=== PATIENT | female | born 1940 ===

== ENCOUNTER 2022-01-07 13:14 | Inpatient (IN) | payer MEDICARE ==
[~2022-01-07] VITALS: Ht 170.2 cm; Wt 75.9 kg
[2022-01-07] MEDS ORDERED: HALOPERIDOL 5 MG/ML (HALDOL) VIAL IM PRN (13:45)
[2022-01-07] MEDS ORDERED: polyethylene glycoL POWDER 17 GM (MIRALAX) PACK PO PRN (13:45)
[2022-01-07] MEDS ORDERED: diphenhydrAMINE 50 MG/ML INJ (BENADRYL) IVP PRN (13:45)
[2022-01-07] MEDS ORDERED: HYDROmorphone 2 MG/ML VIAL (DILAUDID) IV PRN (13:45)
[2022-01-07] MEDS ORDERED: ANTACID SUSP 30 ML UDC (MYLANTA) PO PRN (13:45)
[2022-01-07] MEDS ORDERED: BISACODYL 10 MG SUPP (DULCOLAX) PR PRN (13:45)
[2022-01-07] MEDS ORDERED: ACETAMINOPHEN 325 MG TABLET PO PRN (13:45)
[2022-01-07] MEDS ORDERED: ONDANSETRON 4 MG/2 ML (SDV) Z0FRAN IV PRN (13:45)
[2022-01-07] MEDS ORDERED: diphenhydrAMINE 25 MG TAB (BENADRYL) PO PRN (13:45)
[2022-01-07] MEDS ORDERED: CALCIUM CARBONATE 500 MG (TUMS) TAB.CHEW PO PRN (13:45)
[2022-01-07] MEDS ORDERED: ONDANSETRON 4 MG (ZOFRAN) ORAL DISSOLVE TAB PO PRN (13:45)
[2022-01-07] MEDS ORDERED: LACTULOSE SYRUP 10GM/15ML (ENULOSE) 30ML UDC PO PRN (13:45)
[2022-01-07] MEDS ORDERED: MILK OF MAGNESIA 400 MG/5 ML 30 ML UDC PO PRN (13:45)
[2022-01-07] MEDS ORDERED: MELATONIN 3 MG TABLET PO PRN (13:45)
--- OUTSIDE RECORDS SUMMARY | 2022-01-07 14:07 | XMS REPORT | Referral Summary ---
Author Author [facility] Organization [facility] Address Unknown Phone Unavailable Care Team Providers Care Screw Machine Set Up Operator Name Role Phone MusaCassandra PCP Encounter 01/03/22 - 01/03/22 [facility] [address] [facility] [address] [place], [place] [phone] Discharge Disposition: 01-Home or Self Care Allergies, Adverse Reactions, Alerts Substance Reaction Severity Status sulindac pt thinks caused rash/burning Medium Active Tape Redness of the skin Mild Active iodine rash Medium Active Assessment and Plan No data available for this section Functional Status No data available for this section Immunizations Given and Recorded Vaccine Date Status Refusal Reason SARS-CoV-2 (COVID-19) mRNA BNT-162b2 vac 12/28/20 Recorded influenza virus vaccine, inactivated 12/03/20 R ecorded influenza virus vaccine, inactivated 10/11/19 R ecorded influenza virus vaccine, inactivated 11/19/18 R ecorded influenza virus vaccine, inactivated 11/13/17 R ecorded influenza virus vaccine, inactivated 11/04/16 R ecorded influenza virus vaccine, inactivated 12/15/15 R ecorded influenza virus vaccine, inactivated1 11/28/14 Recorded influenza virus vaccine, inactivated2 11/20/13 Recorded SARS-CoV-2 (COVID-19) Ad26 vax, recomb 06/24/20 Recorded tetanus/diphth/pertuss (Tdap) adult/adol 04/16/19 Given Shingrix 11/20/18 Recorded Shingrix 09/19/18 Recorded pneumococcal 23-polyvalent vaccine 01/03/17 Giv en pneumococcal 23-polyvalent vaccine 09/02/05 Rec orded measles/mumps/rubella/varicella vaccine 11/04/16 Recorded pneumococcal 13-valent conjugate vaccine 01/20/15 Given influenza virus vaccine, live 11/29/12 Given influenza virus vaccine, live 11/30/11 Given influenza virus vaccine, H1N1, inactivat 02/24/09 Recorded tetanus-diphth toxoids (Td) adult/adol 06/17/03 Given 1Location History: [facility] 2Location History: [facility] pharmacy Medications alendronate 70 mg oral tablet See Instructions, TAKE ONE TABLET BY MOUTH ONCE WEEKLY, # 12 tabs, 0 Refill(s), Pharmacy: [facility] [id number], TAKE ONE TABLET BY MOUTH ONCE WEEKLY Start Date: 12/18/20 Status: Ordered Aleve 220 mg oral tablet 220 mg 1 tabs, Oral, BID Start Date: 11/24/20 Status: Ordered atorvastatin 80 mg oral tablet 80 mg 1 tabs, Oral, Bedtime (once a day), # 90 tabs, 0 Refill(s), Pharmacy: [facility] #[id number], 1 tabs Oral Bedtime (once a day) Start Date: 12/31/20 Status: Ordered calcium (as carbonate and lactate)-vitamin D 200 mg-250 intl units (6.25 mcg) or al tablet, chewable 1 tabs, Chewed, Daily, 0 Refill(s) Start Date: 05/06/20 Status: Ordered Eliquis 5 mg oral tablet 5 mg 1 tabs, Oral, BID, # 60 tabs, 0 Refill(s) Start Date: 06/23/20 Status: Ordered flecainide 50 mg oral tablet 50 mg 1 tabs, Oral, q12hr, # 60 tabs, 6 Refill(s), Pharmacy: [facility] #[id number], 1 tabs Oral q12hr Start Date: 04/22/17 Status: Ordered levothyroxine 75 mcg (0.075 mg) oral tablet See Instructions, TAKE ONE TABLET BY MOUTH DAILY, # 90 tabs, 0 Refill(s), Pharma cy: [facility] [id number], TAKE ONE TABLET BY MOUTH DAILY Start Date: 10/07/21 Status: Ordered Mental Status No data available for this section Problem List Condition Confirmation Course Effective Status Health Status Informant Dates Acute pain Confirmed Active Anemia Confirmed Active Cataracts Confirmed Active Centrilobular Confirmed 2008 Active emphysema Generalized Confirmed Active osteoarthritis (disorder) 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 Urine Confirmed Active Infections Disease caused Confirmed Active by 2018-nCoV1 Mixed Confirmed Active dyslipidemia Pedal edema Confirmed < 01/14/14 Resolved Lower extremity Confirmed Active edema Fibrocystic Confirmed 12/20/07 Active mastopathy 2-part disp Confirmed Resolved fracture of surgical neck of humerus with routine healing GERD Confirmed Active (gastroesophage al reflux disease) Hypothyroidism Confirmed Active (disorder) Prediabetes Confirmed Active Kidney stones Confirmed 198901/14/14 Resolved Elevated liver Confirmed Active enzymes Dermatophytosis Confirmed Active of nail Osteopenia Confirmed Resolved Osteoporosis Confirmed Active (disorder) Overweight Confirmed Active PAF (paroxysmal Confirmed Active atrial fibrillation) Chicken pox2 Confirmed < 01/14/14 Resolved 1Problem added by [email or web address]_PROBLEM due to COVID POS on March 18, 2020 16:49:30 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 Procedures Procedure Date Related Diagnosis Body Site Status Cystoscopy Ureteroscopy1 11/25/20 Completed Cataract Left 2008 Completed Cataract right 2008 Completed L BREAST BX 12/20/07 Completed Breast Punch biopsies X2 Completed Cataract extraction Completed 1auto-populated from documented surgical case Results No data available for this section Vital Signs No data available for this section Social History Social History Type Response Smoking Status Former smoker, quit more th an 30 days ago; Type: Cigarettes; Tobacco use per day: Less than 1/4 pack; Number of years: 25; entered on: 05/07/20 Sex Female Health Concerns No data available for this section Implantable Device List No data available for this section Hospital Discharge Instructions No data available for this section Goals No data available for this section Reason for Referral No data available for this section Hospital Course No data available for this section Clinical Note No data available for this section Patient Care team information Personnel Name: Cassandra Vigil MD Address: Address: [address] [address]
--- OUTSIDE RECORDS SUMMARY | 2022-01-07 14:07 | XMS REPORT | Referral Summary ---
Author Author [facility] Organization [facility] Address Unknown Phone Unavailable Care Team Providers Care Scientific Process Operator Name Role Phone Cassandra Vigil PCP Encounter 11/08/21 - 11/08/21 [facility] [address] [facility] [address] [place], [place] [address] Encounter Diagnosis Swelling of left lower extremity (Discharge Diagnosis) - 11/08/21 Discharge Disposition: 01-Home or Self Care Attending Physician: Cassandra Vigil MD Allergies, Adverse Reactions, Alerts Substance Reaction Severity Status sulindac pt thinks caused rash/burning Medium Active Tape Redness of the skin Mild Active iodine rash Medium Active Assessment and Plan Extracted from: Title: Office Visit Note Author: Cassandra Vigil MD Date : 11/08/21 Swelling of left lower extremi ty Schedulevenous Doppler to rule out DVT. Ordered: Office Visit Level 3 Est 98566 Functional Status No data available for this [...] 06/17/03 Given 1[facility] 2Location History: [facility] pharmacy Medications alendronate 70 mg oral tablet See Instructions, TAKE ONE TABLET BY MOUTH ONCE WEEKLY, # 12 tabs, 0 Refill(s), Pharmacy: [facility] [id number], TAKE ONE TABLET BY MOUTH ONCE WEEKLY Start Date: 12/18/20 Status: Ordered Aleve 220 mg oral tablet 220 mg 1 tabs, Oral, BID Start Date: 11/24/20 Status: Ordered atorvastatin 80 mg oral tablet 80 mg 1 tabs, Oral, Bedtime (once a day), # 90 tabs, 0 Refill(s), Pharmacy: [facility] #[id number], 1 tabs Oral Bedtime (once a day) [...] q12hr, # 60 tabs, 6 Refill(s), Pharmacy: [facility] #[id number], 1 tabs Oral q12hr Start Date: 04/22/17 Status: Ordered levothyroxine 75 mcg (0.075 mg) oral tablet See Instructions, TAKE ONE TABLET BY MOUTH DAILY, # 90 tabs, 0 Refill(s), Pharma cy: [facility] [id number], TAKE ONE TABLET BY MOUTH DAILY Start Date: 10/07/21 Status: Ordered Mental Status No data available for this section Problem List Condition Confirmation Course Effective Status Health Status Informant Dates Acute pain Confirmed Active Anemia Confirmed Active Cataracts Confirmed Active Centrilobular Confirmed 2007 Active emphysema Generalized Confirmed Active osteoarthritis (disorder) [...] Confirmed < 01/14/14 Resolved 1Problem added by MALLY_COVID_PROBLEM due to COVID POS on March 18, 2020 16:49:30 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 Procedures Procedure Date Related Diagnosis Body Site Status Cystoscopy Ureteroscopy1 11/25/20 Completed Cataract Left 2008 Completed Cataract right 2008 Completed L BREAST BX 12/20/07 Completed Breast Punch biopsies X2 Completed Cataract extraction Completed 1auto-populated from documented surgical case Results No data available for this section Vital Signs Most recent to 1 oldest [Reference Range]: Temperature Tympanic 36.5 degC [35.8-38.1 degC] (11/08/21 1:40 PM) Peripheral Pulse 80 bpm Rate [60-100 bpm] (11/08/21 1:40 PM) Blood Pressure 146/80 mmHg [90-140/60-90 mmHg] *HI* (11/08/21 1:40 PM) SpO2 98 % (11/08/21 1:40 PM) Social History Social History Type Response Smoking [...] Personnel Name: Cassandra Vigil MD Address: Address: [address] [address]
--- OUTSIDE RECORDS SUMMARY | 2022-01-07 14:07 | XMS REPORT | Referral Summary ---
Author Author [facility] Organization [facility] Address Unknown Phone Unavailable Care Team Providers Care Photography Colorist Name Role Phone MusaCassandra PCP Encounter 12/30/21 - 12/30/21 [facility] [address] [facility] [address] [place], [place] [phone] Discharge Disposition: 01-Home or Self Care Allergies, [...] 06/17/03 Given 1[facility] History[facility] 2Location History: [facility] pharmacy Medications alendronate 70 mg oral tablet See Instructions, TAKE ONE TABLET BY MOUTH ONCE WEEKLY, # 12 tabs, 0 Refill(s), Pharmacy: [facility] [id number], TAKE ONE TABLET BY MOUTH ONCE WEEKLY Start Date: 12/18/20 Status: Ordered Aleve 220 mg oral tablet 220 mg 1 tabs, Oral, BID Start Date: 11/24/20 Status: Ordered atorvastatin 80 mg oral tablet 80 mg 1 tabs, Oral, Bedtime (once a day), # 90 tabs, 0 Refill(s), Pharmacy: [facility] #[id number], 1 tabs Oral Bedtime (once a day) [...] q12hr, # 60 tabs, 6 Refill(s), Pharmacy: [facility] #[id number], 1 tabs Oral q12hr Start Date: 04/22/17 Status: Ordered levothyroxine 75 mcg (0.075 mg) oral tablet See Instructions, TAKE ONE TABLET BY MOUTH DAILY, # 90 tabs, 0 Refill(s), Pharma cy: [facility] [id number], TAKE ONE TABLET BY MOUTH DAILY Start [...] COVID POS on March 18, 2020 16:49:30 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
--- OUTSIDE RECORDS SUMMARY | 2022-01-07 14:07 | XMS REPORT | Referral Summary ---
Author Author [facility] Organization [facility] Address Unknown Phone Unavailable Care Team Providers Care Hand Edge Bander Name Role Phone MusaCassandra PCP Encounter 12/28/21 - 12/28/21 [facility] [address] [facility] [address] [place], [place] [phone] Discharge Disposition: 01-Home or Self Care Allergies, [...] 06/17/03 Given 1[facility] History[facility] 2Location History: [facility] pharmacy Medications alendronate 70 mg oral tablet See Instructions, TAKE ONE TABLET BY MOUTH ONCE WEEKLY, # 12 tabs, 0 Refill(s), Pharmacy: [facility] [id number], TAKE ONE TABLET BY MOUTH ONCE WEEKLY Start Date: 12/18/20 Status: Ordered Aleve 220 mg oral tablet 220 mg 1 tabs, Oral, BID Start Date: 11/24/20 Status: Ordered atorvastatin 80 mg oral tablet 80 mg 1 tabs, Oral, Bedtime (once a day), # 90 tabs, 0 Refill(s), Pharmacy: [facility] #[id number], 1 tabs Oral Bedtime (once a day) [...] # 60 tabs, 6 Refill(s), Pharmacy: [facility] #[id number], 1 tabs Oral q12hr Start Date: 04/22/17 Status: Ordered levothyroxine 75 mcg (0.075 mg) oral tablet See Instructions, TAKE ONE TABLET BY MOUTH DAILY, # 90 tabs, 0 Refill(s), Pharma cy: [facility] [id number], TAKE ONE TABLET BY MOUTH DAILY Start [...] COVID POS on March 18, 2020 16:49:30 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
[2022-01-07 14:10] VITALS: BP 167/98
--- NOTE | 2022-01-07 14:39 | Physical Therapy Progress Note ---
Therapy Progress Note Per Nurse, patient is a resident of [facility] in [place], [place]. Patient sustained a fall from standing this morning. Patient has left clavicle fracture, left pubic rami fracture and left humeral dislocation. Patient is also confused at baseline and her niece is her DPOA. All information obtained from nurse as there were no reports yet in the patient EMR. Nurse requested hold at this time for PT evaluation due to patient injuries and current cognitive level. Will attempt evaluation tomorrow and progress per patient tolerance. CARMELLA GUIDRY PT Jan 07, 2022 14:39
[2022-01-07] MEDS ORDERED: APIX5TAB PO (14:49)
[2022-01-07] MEDS ORDERED: NAPR220C11 PO (14:49)
[2022-01-07] MEDS ORDERED: FLEC50TA PO (14:49)
[2022-01-07] MEDS ORDERED: LEVO75CA5 PO (14:49)
[2022-01-07] MEDS ORDERED: CALC-146 PO (14:49)
--- NOTE | 2022-01-07 14:52 | Occ Therapy Progress Note ---
Therapy Progress Note OT orders received. Pt just admitted from [facility] for pelvic fx. Pt on hold this date per RN. OT will attempt again next available time. LOAN WEISS OT Jan 07, 2022 14:52
[2022-01-07 15:07] VITALS: BP 167/98
[2022-01-07] MEDS ORDERED: RT-ALBUTEROL/IPRATROPIUM 3 ML (DUONEB) VIAL INH PRN (15:15)
[2022-01-07] MEDS: NS IV 1000 ML 1,000 ML IV SCH (15:20)
[2022-01-07] MEDS: ALPRAZolam 0.5 MG (XANAX) TAB PO PRN (15:28)
[2022-01-07] MEDS: morphine IMMEDIATE RELEASE 15 MG TABLET PO PRN (15:29)
[2022-01-07 15:35] VITALS: BP 152/72
--- NOTE | 2022-01-07 15:46 | History & Physical ---
History of Present Illness HPI/Chief Complaint CC: Fall with left clavicle and left pelvic ramus fracture HPI: This is an 81yoWF patient who just moved from [place] to [facility] in [place] and suffered a fall which resulted in left sided bone fractures. Her relative works at [employer] in OB floor so she requested the patient to move here to be closer to her. She is very confused and has dementia. Dr Larsen consulted for AF on OAC and Flecanide. Anti-psychotics are ordered due to agitation already noted. Source: family, RN/MD, old records Date Seen 01/07/22 Time Seen by a Provider: 17:00 Attending Physician PCP Admitting Physician: Miracle Lane DO Attending Physician: Miracle Lane DO Referring Physician Date of Admission Jan 07, 2022 at 14:00 Home Medications & Allergies Home Medications Reviewed patient Home Medication Reconciliation performed by pharmacy medication reconciliations operating theatre technician and/or nursing. Patients Allergies have been reviewed. Allergies Allergies Coded Allergies adhesive tape (Unverified Allergy, Unknown, 01/07/22) iodine (Unverified Allergy, Unknown, 01/07/22) shellfish derived (Unverified Allergy, Unknown, 01/07/22) sulindac (Unverified Allergy, Unknown, 01/07/22) Past Oephnwj-Gcrhvb-Tcuakk Hx Past Med/Social Hx: Reviewed Nursing Past Med/Soc Hx, Reviewed and Corrections made Patient Social History Marrital Status: single Employed/Student: retired Smoking Status: Never a Smoker Past Medical History Cardiac: Atrial Fibrillation Neurological: Dementia Endocrine: Hypothyroidsim Review of Systems Constitutional: see HPI, malaise, weakness Psychiatric/Neurological: Other (confusion) Physical Exam Physical Exam Vital Signs Vital Signs - First Documented 01/07/22 01/07/22 14:10 17:52 Temp 36.3 Pulse 85 Resp 20 B/P (MAP) 167/98 (121) Pulse Ox 95 O2 Delivery Room Air O2 Flow Rate 0.00 Capillary Refill : Height, Weight, BMI Height: '" Weight: lbs. oz. kg; 26.06 BMI Method: General Appearance: Anxious, Chronically ill, Moderate Distress, Other (confused) Respiratory: Lungs Clear, Normal Breath Sounds Cardiovascular: Regular Rate, Rhythm Neurologic/Psychiatric: Alert, Disoriented Results Results/Procedures Labs Patient resulted labs reviewed. Assessment/Plan Admission Diagnosis Assessment: Fall mechanical type resulting in left clavicle, left distal humerus and left pubic ramus fractures Severe dementia Acute delirium AF chronic OAC Hypothyroidism Plan: Pain control Delirium treatment Home meds Dr Larsen consult OAC BM regimen Admission Status: Inpatient Order (span 2 midnights) Reason for Inpatient Admission: multiple bone fractures with dementia and severe pain MIRACLE LANE DO Jan 07, 2022 15:46
--- NOTE | 2022-01-07 15:55 | Consultation-Cardiology ---
HPI-Cardiology Cardiology Consultation: Date of Consultation 01/07/22 Time Seen by a Provider: 15:15 Date of Admission Attending Physician Admitting Physician Admitting Physician: Miracle Lane DO Attending Physician: Miracle Lane DO Consulting Physician MARYANN BELLE MD, MA, FACP, FACC, FSCAI, CCDS Physician requesting consult: Dr Lane HPI: Chief Complaint: Reason for Card consult: PAF 81 yo woman, resident of a [place], who has been admitted to Dr Lane's service from the [facility] after she presented with a nonsyncopal fall that resulted in L clavicular and L pelvic fractures. She does not report cp or palp or syncope or swelling. Review of Systems-Cardiology Review of Systems Constitutional: No weight loss, No weight gain Eyes: No vision change Ears/Nose/Throat: No ear discharge, No nasal drainage, No recent hearing loss Respiratory: As described under HPI Cardiovascular: As described under HPI Gastrointestinal: No diarrhea, No vomiting Genitourinary: No dysuria, No hematuria Musculoskeletal: No back pain, No joint pain Skin: No rash, No ulcerations Psychiatric/Neurological: No seizure, No focal weakness, No syncope Hematologic: No bleeding abnormalities BRO-Nfkrcu-Wtilqq Hx Patient Social History Smoking Status: Never a Smoker Have you traveled recently?: No Alcohol Use?: No Pt feels they are or have been: No Past Medical History PMH As described under Assessment. Family Medical History Family Medical History: She does not report fam h/o early CAD, but has trouble recalling her and her family's medical history Allergies and Home Medications Allergies Coded Allergies: adhesive tape (Unverified Allergy, Unknown, 01/07/22) iodine (Unverified Allergy, Unknown, 01/07/22) shellfish derived (Unverified Allergy, Unknown, 01/07/22) sulindac (Unverified Allergy, Unknown, 01/07/22) Patient Home Medication List Home Medication List Reviewed: Yes Apixaban (Eliquis) 5 Mg Tablet, 5 MG PO BID, (Reported) Entered as Reported by: Kelsea Coppola on 01/07/22 4917 Last Action: New Order Calcium Crb&Cit/D3/Min34/Kenroy (Citracal + Bone Density Tablet) 300 Mg-200 Unit- 13.5 Mg Tablet, 1 EACH PO BID, (Reported) Entered as Reported by: Kelsea Coppola on 01/07/221448 Last Action: New Order Flecainide Acetate (Flecainide Acetate) 50 Mg Tablet, 50 MG PO BID, (Reported) Entered as Reported by: Kelsea Coppola on 01/07/221448 Last Action: New Order Levothyroxine Sodium (Levothyroxine) 75 Mcg Capsule, 75 MCG PO DAILY, (Reported) Entered as Reported by: Kelsea Coppola on 01/07/221448 Last Action: New Order Naproxen Sodium (Aleve) 220 Mg Capsule, 220 MG PO DAILY, (Reported) Entered as Reported by: Kelsea Coppola on 01/07/221448 Last Action: New Order Physical Exam-Cardiology Physical Exam Vital Signs/I&O 01/07/22 01/07/22 01/07/22 01/07/22 14:10 14:18 15:07 15:35 Temp 36.3 36.3 36.0 Pulse 85 85 84 Resp 20 16 B/P (MAP) 167/98 (121) 152/72 (98) Pulse Ox 95 95 95 94 O2 Delivery Room Air Room Air Room Air Capillary Refill : Constitutional: well-developed, well-nourished, other (appears oriented to plac and person, appears mildly confused, appears to have poor recent memory) HEENT: PERRL, EOMI, hearing is well preserved; No xanthelasmas are seen Neck: carotid pulses are 2 + bilaterally Respiratory: No accessory muscle use; other (fair to good, bilat air entry) Cardiovascular: regular rate-rhythm, S1 and S2, systolic murmur (soft ZAINAB at card base) Gastrointestinal: No tender; soft; No guarding, No rebound; audible bowel sounds Extremities: No clubbing, No cyanosis, No significant edema Neurologic/Psychiatric: oriented x 3, other (moves all limbs equally) Skin: No rash on exposed areas, No ulcerations on exposed areas A/P-Cardiology Assessment/Admission Diagnosis Non-syncopal fall on 01/07/22 leading to L clavicular fracture, displacement of L humerus, and L pelvic fracture - managed by Dr Lane H/o PAF - on chronic therapy with flecainide and apixaban; currently in [facility] H/o dementia Discussion and Recomendations * Continue OAC the antiarrhythmic regimen she has chronically been on * Echo * Monitor labs MARYANN BELLE MD [facility] CCDS Jan 07, 2022 15:55
[2022-01-07] MEDS: risperiDONE 0.25 MG (RisperDAL) TAB PO SCH ×2 (17:20→19:59)
[2022-01-07] MEDS: SENNOSIDES 8.6 MG (SENOKOT) TAB PO SCH (19:56)
[2022-01-07] MEDS: OLANZapine 5 MG ODT (ZyPREXA ZYDIS) PO SCH (19:57)
[2022-01-07 19:59] VITALS: BP 103/58
[2022-01-07] MEDS: DOCUSATE SODIUM 100 MG (COLACE) CAP PO SCH (19:59)
[2022-01-07] MEDS: FLECAINIDE 100 MG (TAMBOCOR) TAB PO SCH (19:59)
[2022-01-07] MEDS: APIXABAN 5 MG (ELIQUIS) TABLET PO SCH (19:59)
[2022-01-07 23:04] VITALS: BP 107/63
[2022-01-08 03:40] VITALS: BP 120/72
--- NOTE | 2022-01-08 05:45 | Progress Note ---
Subjective Date Seen by a Provider: Jan 08, 2022 Time Seen by a Provider: 11:00 Subjective/Events-last exam Patient very confused Received a lot of antipsychotics Bone fractures are nonsurgical after assessed by Dr. Vazquez No pain reported but she is confused Labs reviewed Review of Systems Neurological: Confusion Objective Exam Last Set of Vital Signs Vital Signs Date Time Temp Pulse Resp B/P (MAP) Pulse Ox O2 Delivery O2 Flow Rate FiO2 01/08/22 03:40 36.2 81 18 120/72 (88) 99 Nasal Cannula 2.50 Capillary Refill : I&O Intake and Output 01/08/22 00:00 Intake Total 500 ml Output Total 1270 ml Balance -770 ml Intake Oral 500 ml Output Urine Total 1270 ml Daily Weight Change No General: Alert, Other (Confused) Lungs: Clear to Auscultation Heart: Regular Rate Assessment/Plan Assessment/Plan Assess & Plan/Chief Complaint Assessment: Fall mechanical type resulting in left clavicle, left distal humerus and left p ubic ramus fractures Severe dementia Acute delirium AF chronic OAC Hypothyroidism Plan: Pain control Delirium treatment Home meds Dr Larsen consult OAC BM regimen ZURDO WELLS DO Jan 08, 2022 05:45
[2022-01-08] MEDS: NS IV 1000 ML 1,000 ML IV SCH ×2 (06:07→20:35)
[2022-01-08] MEDS: LEVOTHYROXINE 75 MCG (LEVOTHROID) TABLET PO SCH (06:07)
[2022-01-08 06:12] LABS: EOSINOPHILS % (AUTO) 1 % (0-10)
[2022-01-08 06:14] LABS: BASOPHILS # (AUTO) 0.1 10^3/uL (0.0-0.1); BASOPHILS % (AUTO) 1 % (0-10); HEMATOCRIT 36 % (35-52); HEMOGLOBIN 11.8 g/dL (11.5-16.0); LYMPHOCYTES # (AUTO) 1.2 10^3/uL (1.0-4.0); LYMPHOCYTES % (AUTO) 18 % (12-44); MEAN CORPUSCULAR HEMOGLOBIN 30 pg (25-34); MEAN CORPUSCULAR HGB CONC 33 g/dL (32-36); MEAN CORPUSCULAR VOLUME 91 fL (80-99); MEAN PLATELET VOLUME 10.2 fL (9.0-12.2); MONOCYTES # (AUTO) 0.7 10^3/uL (0.0-1.0); MONOCYTES % (AUTO) 11 % (0-12); NEUTROPHILS # (AUTO) 4.5 10^3/uL (1.8-7.8); NEUTROPHILS % (AUTO) 70 % (42-75); WHITE BLOOD COUNT 6.4 10^3/uL (4.3-11.0)
[2022-01-08 06:35] LABS: ALBUMIN 2.9 GM/DL (3.2-4.5); BILIRUBIN,TOTAL 1.1 MG/DL (0.1-1.0); CALCIUM 8.7 MG/DL (8.5-10.1); CREATININE SERUM 0.68 MG/DL (0.60-1.30); TOTAL PROTEIN 6.2 GM/DL (6.4-8.2)
[2022-01-08 06:36] LABS: PLATELET COUNT 118 10^3/uL (130-400)
[2022-01-08 08:00] VITALS: BP 148/73
[2022-01-08] MEDS: SENNOSIDES 8.6 MG (SENOKOT) TAB PO SCH ×3 (08:31→22:20)
[2022-01-08] MEDS: APIXABAN 5 MG (ELIQUIS) TABLET PO SCH ×3 (08:32→22:19)
[2022-01-08] MEDS: DOCUSATE SODIUM 100 MG (COLACE) CAP PO SCH ×3 (08:32→22:19)
[2022-01-08] MEDS: FLECAINIDE 100 MG (TAMBOCOR) TAB PO SCH ×3 (08:34→22:20)
[2022-01-08] MEDS: risperiDONE 0.25 MG (RisperDAL) TAB PO SCH ×3 (08:35→22:20)
--- NOTE | 2022-01-08 09:47 | Occupational Therapy Eval ---
OT Evaluation-General/PLF Medical Diagnosis Admission Date Jan 07, 2022 at 14:00 Medical Diagnosis: L pubic rami fx, L clavicle fx, L humeral fx Onset Date: Jan 07, 2022 Therapy Diagnosis Therapy Diagnosis: decreased ADL status Precautions Precautions/Isolations: Fall Prevention, Standard Precautions Weight Bear Status Weight Bearing Restriction: Non Weight Bearing Location Restriction: L UE Referral Physician: Domingo Referral Reason: Evaluation/Treatment Medical History Additional Medical History dementia, afib, hypothyroidism Current History fall with L pubic rami fx, L clavicle fx, and L humeral fx. Social History Home: Assisted Living ADL-Prior Level of Function SCALE: Activities may be completed with or without assistive devices. 8-Umhsvxmxlf-azxnrcz completes the activity by him/herself with no assistance from a helper. 5-Set-up or Clean-up Assistance-helper sets up or cleans up; patient completes activity. [place] assists only prior to or following the activity. 4-Supervision or Touching Assistance-helper provides verbal cues and/or touching/steadying and/or contact guard assistance as patient completes activity. Assistance may be provided throughout the activity or intermittently. 3-Partial/Moderate Assistance-helper does LESS THAN HALF the effort. [place] lifts, holds or supports trunk or limbs, but provides less than half the effort. 2-Substantial/Maximal Assistance-helper does MORE THAN HALF the effort. [place] lifts or holds trunk or limbs and provides more than half the effort. 3-Kbijntqxi-oyaqsp does ALL the effort. Patient does none of the effort to complete the activity. Or, the assistance of 2 or more helpers is required for the patient to complete the activity. If activity was not attempted, code reason: 7-Patient Refused. 9-Not Applicable-not attempted and the patient did not perform the activity before the current illness, exacerbation or injury. 10-Not Attempted due to Environmental Limitations-(lack of equipment, weather restraints, etc.). 88-Not Attempted due to Medical Conditions or Safety Concerns. ADL PLOF Comments Pt unable to provide information about PLOF due to h/o dementia Self Care: Unknown Functional Cognition: Needed Some Help OT Current Status Subjective Pt at EOB with PT, agreeable to OT evaluation. Mental Status/Objective Patient Orientation: Person, Confused Attachments: Adair Catheter, IV, Oxygen Current Upper Extremity ROM LUE not tested due to humeral fx, in sling. RUE shoulder flexion to approx 90 degrees during tx. Upper Extremity Coordination Decreased Upper Extremity Strength unable to test due to difficulty following directions. LUE not tested due to humerus fx ADL-Treatment Eating (QC): 2 (Assistance per RN report. Pt declined all offerred food from OT.) Shower/Bathe Self (QC): 1 (Pt would require 2+ person assistance in stand to wash buttocks, assistance washing all parts due to difficulty following directions.) Lower Body Dressing (QC): 1 (Pt would require assistance with all parts and 2+ person assistance in stand for pant hike) On/Off Footwear (QC): 1 Toileting Hygiene (QC): 1 (Pt would require 2+ person assistance in stand for pant hike and assistance with all parts.) Other Treatments Pt at EOB with PT, assist x2 to scoot towards EOB. Assist x2 to stand at EOB with FWW, and 3 person assistance to transfer to recliner (2 for balance, and 1 to assist with moving LES). Pt had difficulty following instructions, did not meat pickler BLEs for transfer as instructed and once sitting, unable to follow instructions to let go of the walker with RUE. OT had to physically remove pt's fingers/hand from walker in order for pt to let go. Pt positioned to comfort in recliner, legs elevated, and pillows placed to comfort. OT attempted to assist pt with eating, but pt would not eat any food offered by OT. Post tx, pt in recliner, call light in reach and all needs met. Education OT Patient Education: Correct positioning, Energy conservation, Modified ADL techniques, Progress toward Goal/Update tx plan, Purpose of tx/functional activities Teaching Recipient: Patient Teaching Methods: Discussion Response to Teaching: Reinforcement Needed OT Marketing Content Coordinator Goals [facility] Goals Time Frame: Jan 22, 2022 Eating (QC): 5 Oral Hygiene (QC): 5 Toileting Hygiene (QC): 3 Shower/Bathe Self (QC): 3 Upper Body Dressing (QC): 3 Lower Body Dressing (QC): 2 On/Off Footwear (QC): 2 Additional Goals: 1-Demonstrate ADL Tasks, 2-Verbalize Understanding, 3- ImproveStrength/[place] 1=Demonstrate adherence to instructed precautions during ADL tasks. 2=Patient will verbalize/demonstrate understanding of assistive devices/modifications for ADL. 3=Patient will improve strength/tolerance for activity to enable patient to perform ADL's. OT Education/Plan Problem List/Assessment Assessment: Decreased Activ Tolerance, Decreased Safety Aware, Decreased UE Strength, Dependent Transfers, Impaired Cognition, Impaired Coordination, Impaired Funct Balance, Impaired I ADL's, Impaired Self-Care Skills, Restricted Funct UE ROM Discharge Recommendations Plan/Recommendations: Continue POC Therapy Discharge Recommendati: Post Acute OT (SNF) Comment At pt's current LOF, OT recommends SNF at discharge. Pt has history of dementia, and had difficulty following instructions throughout todays evaluation. Barriers to Progress dementia Target Placement SNF Treatment Plan/Plan of Care Patient would benefit from OT for education, treatment and training to promote independence in ADL's, mobility, safety and/or upper extremity function for ADL's. Plan of Care: ADL Retraining, Functional Mobility, UE Funct Exercise/Act Treatment Duration: Jan 22, 2022 Frequency: 3 times per week (3-5 times per week) Estimated Hrs Per Day: .25 hour per day Rehab Potential: Guarded Time Start Time: 09:27 Stop Time: 09:37 DATE: Jan 08, 2022 Total Time Billed (hr/min): 10 Billed Treatment Time 1, LOAN SANZ OT Jan 08, 2022 09:47
[2022-01-08 11:28] VITALS: BP 139/68
[2022-01-08] MEDS: ALPRAZolam 0.5 MG (XANAX) TAB PO PRN (11:46)
[2022-01-08] MEDS: morphine IMMEDIATE RELEASE 15 MG TABLET PO PRN (11:46)
--- NOTE | 2022-01-08 13:08 | Physical Therapy Evaluation ---
PT Evaluation-General Medical Diagnosis Admission Date Jan 07, 2022 at 14:00 Medical Diagnosis: L pubic rami fx, L clavicle fx, L humeral fx Onset Date: Jan 07, 2022 Therapy Diagnosis Therapy Diagnosis: decreased mobility Precautions Precautions/Isolations: Fall Prevention, Standard Precautions Referral Physician: Domingo Reason for Referral: Evaluation/Treatment Medical History Current History Pt. direct admit from [facility] with L clavicle fx, L pubic rami fx, L dislocated humerus following fall. Reviewed History: Yes Social History Home: Assisted Living Prior Prior Level of Function SCALE: Activities may be completed with or without assistive devices. 5-Lzqwjkbisx-guwnzyr completes the activity by him/herself with no assistance from a helper. 5-Set-up or Clean-up Assistance-helper sets up or cleans up; patient completes activity. [place] assists only prior to or following the activity. 4-Supervision or Touching Assistance-helper provides verbal cues and/or touching/steadying and/or contact guard assistance as patient completes activity. Assistance may be provided throughout the activity or intermittently. 3-Partial/Moderate Assistance-helper does LESS THAN HALF the effort. [place] lifts, holds or supports trunk or limbs, but provides less than half the effort. 2-Substantial/Maximal Assistance-helper does MORE THAN HALF the effort. [place] lifts or holds trunk or limbs and provides more than half the effort. 8-Vtmcgevhf-pymfhx does ALL the effort. Patient does none of the effort to complete the activity. Or, the assistance of 2 or more helpers is required for the patient to complete the activity. If activity was not attempted, code reason: 7-Patient Refused. 9-Not Applicable-not attempted and the patient did not perform the activity before the current illness, exacerbation or injury. 10-Not Attempted due to Environmental Limitations-(lack of equipment, weather restraints, etc.). 88-Not Attempted due to Medical Conditions or Safety Concerns. Pt. unable to answer PMH and level of function PT Evaluation-Current Subjective Pt. asleep in bed, does awaken with several calls to name from therapist. Pt. does agrees to sit up in chair. She does occasionally yell out in pain with moving extremities but unable to give objective pain rating. Co-eval and treat with OT. Pt/Family Goals possibly assisted living Objective Patient Orientation: Confused ROM/Strength ROM Upper Extremities See OT ROM Lower Extremities Limited L hip ROM but otherwise WFL Strength Upper Extremities See OT Strength Lower Extremities diminished Integumentary/Posture Integumentary see nursing notes Bladder Incontinence: Adair Cath Neuromuscular (Tone, Coordination, Reflexes) diminished Sensory Vision: Wears Glasses Hearing: Functional Sensation Right Upper Extremit: Impaired Sensation Left Upper Extremity: Impaired Sensation Right Lower Extremit: Impaired Sensation Left Lower Extremity: Impaired Transfers Lying to Sitting/Side of Bed(Q: 1 Sit to Stand (QC): 1 Chair/Idh-wf-Wnzyh Xfer(QC): 1 Gait Does the Patient Walk?: No and Walking Goal IS indicated Balance Sitting Static: Poor Sitting Dynamic: Poor Standing Static: Poor Standing Dynamic: Poor Assessment/Needs Pt. is an 81 y.o. female with several L-sided fractures following a fall. Pt. unable to provide prior level of function and was very confused during session. Co-tx with OT needed due to dependent for all transfers. Pt. would benefit from skilled PT to improve strength and mobility, discharge destination unknown at this time. Rehab Potential: Poor PT Short Term Goals Short Term Goals Time Frame: Jan 15, 2022 Roll Left & Right: 3 Sit to lyin Lying to sitting on side of be: 4 Sit to stand: 3 Chair/alq-iq-pizbm transfer: 3 Walk 10 feet: 3 PT Plan Problem List Problem List: Activity Tolerance, Functional Strength, Safety, Balance, Gait, Transfer, Bed Mobility, ROM Treatment/Plan Treatment Plan: Continue Plan of Care Treatment Plan: Bed Mobility, Concurrent Therapy, Education, Functional Activity [place], Functional Strength, Gait, Safety, Therapeutic Exercise, Transfers Treatment Duration: Jan 15, 2022 Frequency: 6 times per week Estimated Hrs Per Day: .25 hour per day Patient and/or Family Agrees t: Yes Time Time In: 920 Time Out: 935 DATE: Jan 08, 2022 Total Billed Treatment Time: 15 Total Billed Treatment 1, EVH 15' (co-eval with OT) GIRISH COTTON PT Jan 08, 2022 13:08
--- NOTE | 2022-01-08 14:26 | Progress Note - Cardiology ---
Cardiology SOAP Progress Note Subjective: Communication difficult due to dementia/confusion Does not report cp No shortness of breath at rest Gen weakness and malaise are present No n/v/d No focal weakness No swelling Objective: I&O/Vital Signs 01/08/22 01/08/22 01/08/22 01/08/22 03:40 08:00 08:26 11:28 Temp 36.2 36.0 36.4 Pulse 81 80 88 Resp 18 16 16 B/P (MAP) 120/72 (88) 148/73 (98) 139/68 (91) Pulse Ox 99 100 100 95 O2 Delivery Nasal Cannula Nasal Cannula O2 Flow Rate 2.50 2.50 01/08/22 13:00 Pulse 82 01/08/22 00:00 Intake Total 500 ml Output Total 1270 ml Balance -770 ml Constitutional: well-developed, well-nourished, other (appears oriented to plac and person, appears mildly confused, appears to have poor recent memory) Respiratory: No accessory muscle use; other (fair to good, bilat air entry) Cardiovascular: regular rate-rhythm, S1 and S2, systolic murmur (soft ZAINAB at card base) Gastrointestional: No tender; soft; No guarding, No rebound; audible bowel sounds Extremities: No clubbing, No cyanosis, No significant edema Neurologic/Psychiatric: oriented x 3, other (moves all limbs equally) Skin: No rash on exposed areas, No ulcerations on exposed areas Results/Procedures: Labs Laboratory Tests 01/08/22 06:04: White Blood Count 6.4, Red Blood Count 3.99, Hemoglobin 11.8, Hematocrit 36, Mean Corpuscular Volume 91, Mean Corpuscular Hemoglobin 30, Mean Corpuscular Hemoglobin Concent 33, Red Cell Distribution Width 14.6H, Platelet Count 118L, Mean Platelet Volume 10.2, Immature Granulocyte % (Auto) 0, Neutrophils (%) (Auto) 70, Lymphocytes (%) (Auto) 18, Monocytes (%) (Auto) 11, Eosinophils (%) (Auto) 1, Basophils (%) (Auto) 1, Neutrophils # (Auto) 4.5, Lymphocytes # (Auto) 1.2, Monocytes # (Auto) 0.7, Eosinophils # (Auto) 0.0, Basophils # (Auto) 0.1, Immature Granulocyte # (Auto) 0.0, Percent Immature Platelet Fraction 2.5, Sodium Level 138, Potassium Level 4.0, Chloride Level 110H, Carbon Dioxide Level 17L, Anion Gap 11, Blood Urea Nitrogen 19H, Creatinine 0.68, Estimat Glomerular Filtration Rate 87, BUN/Creatinine Ratio 28, Glucose Level 101, Calcium Level 8.7, Corrected Calcium 9.6, Total Bilirubin 1.1H, Aspartate Amino Transf (AST/SGOT) 25, Alanine Aminotransferase (ALT/SGPT) 14, Alkaline Phosphatase 65, Total Protein 6.2L, Albumin 2.9L Laboratory Tests 01/08/22 06:04 A/P: Assessment: Non-syncopal fall on 01/07/22 leading to L clavicular fracture, displacement of L humerus, and L pelvic fracture - managed by Dr Lane H/o PAF - on chronic therapy with flecainide and apixaban; currently in NSR - echo on 01/08/22: LVEF 55-60%, grade 1 blank dysfunction H/o dementia Plan: * Continue OAC the antiarrhythmic regimen she has chronically been on * Monitor labs MARYANN BELLE MD FACP [facility] CCDS Jan 08, 2022 14:26
[2022-01-08 16:00] VITALS: BP 138/61
[2022-01-08 19:26] VITALS: BP 142/65
[2022-01-08] MEDS: OLANZapine 5 MG ODT (ZyPREXA ZYDIS) PO SCH ×2 (20:32→22:20)
[2022-01-08 23:26] VITALS: BP 111/70
[2022-01-09 03:36] VITALS: BP 138/65
[2022-01-09] MEDS: LEVOTHYROXINE 75 MCG (LEVOTHROID) TABLET PO SCH ×2 (05:52→08:09)
--- NOTE | 2022-01-09 06:04 | Progress Note ---
Subjective Date Seen by a Provider: Jan 09, 2022 Time Seen by a Provider: 11:00 Subjective/Events-last exam Patient about the same Attempted to speak to EMI Schuler but no answer Pain is controlled Hallucinating Really cannot eat or drink without aspiration risk Review of Systems Neurological: Confusion Objective Exam Last Set of Vital Signs Vital Signs Date Time Temp Pulse Resp B/P (MAP) Pulse Ox O2 Delivery O2 Flow Rate FiO2 01/09/22 03:36 36.3 94 22 138/65 (89) 98 Nasal Cannula 2.00 Capillary Refill : I&O Intake and Output 01/08/22 23:59 Intake Total 2860 ml Output Total 1700 ml Balance 1160 ml Intake Oral 860 ml IV Total 2000 ml Output Urine Total 1700 ml General: Other (Sleeping) Lungs: Clear to Auscultation Heart: Regular Rate Assessment/Plan Assessment/Plan Assess & Plan/Chief Complaint Assessment: Fall mechanical type resulting in left clavicle, left distal humerus and left pubic ramus fractures Severe dementia Acute delirium AF chronic OAC Hypothyroidism Dysphagia due to confusion holding p.o. intake until speech therapy Monday Plan: Pain control Delirium treatment Home meds Dr Larsen consult OAC BM regimen ZURDO WELLS DO Jan 09, 2022 06:04
[2022-01-09 06:17] LABS: NEUTROPHILS % (AUTO) 67 % (42-75)
[2022-01-09 06:18] LABS: BASOPHILS % (AUTO) 1 % (0-10); EOSINOPHILS # (AUTO) 0.1 10^3/uL (0.0-0.3); EOSINOPHILS % (AUTO) 2 % (0-10); HEMATOCRIT 37 % (35-52); HEMOGLOBIN 12.2 g/dL (11.5-16.0); LYMPHOCYTES # (AUTO) 1.1 10^3/uL (1.0-4.0); LYMPHOCYTES % (AUTO) 21 % (12-44); MEAN CORPUSCULAR HEMOGLOBIN 30 pg (25-34); MEAN CORPUSCULAR HGB CONC 33 g/dL (32-36); MEAN CORPUSCULAR VOLUME 90 fL (80-99); MEAN PLATELET VOLUME 9.7 fL (9.0-12.2); MONOCYTES # (AUTO) 0.5 10^3/uL (0.0-1.0); MONOCYTES % (AUTO) 9 % (0-12); NEUTROPHILS # (AUTO) 3.6 10^3/uL (1.8-7.8); PLATELET COUNT 123 10^3/uL (130-400); WHITE BLOOD COUNT 5.4 10^3/uL (4.3-11.0)
[2022-01-09 06:41] LABS: ALBUMIN 2.9 GM/DL (3.2-4.5); BILIRUBIN,TOTAL 1.3 MG/DL (0.1-1.0); CALCIUM 8.5 MG/DL (8.5-10.1); CREATININE SERUM 0.67 MG/DL (0.60-1.30); POTASSIUM 3.8 MMOL/L (3.6-5.0); TOTAL PROTEIN 6.1 GM/DL (6.4-8.2)
[2022-01-09 08:00] VITALS: BP 155/85
[2022-01-09] MEDS: APIXABAN 5 MG (ELIQUIS) TABLET PO SCH ×2 (08:09→20:37)
[2022-01-09] MEDS: DOCUSATE SODIUM 100 MG (COLACE) CAP PO SCH ×2 (08:09→20:38)
[2022-01-09] MEDS: risperiDONE 0.25 MG (RisperDAL) TAB PO SCH ×2 (08:09→20:38)
[2022-01-09] MEDS: FLECAINIDE 100 MG (TAMBOCOR) TAB PO SCH ×2 (08:09→20:38)
[2022-01-09] MEDS: SENNOSIDES 8.6 MG (SENOKOT) TAB PO SCH ×2 (08:09→20:38)
[2022-01-09 11:55] VITALS: BP 113/67
[2022-01-09] MEDS: morphine IMMEDIATE RELEASE 15 MG TABLET PO PRN ×2 (13:55→18:31)
[2022-01-09] MEDS: NS IV 1000 ML 1,000 ML IV SCH (14:21)
--- NOTE | 2022-01-09 15:22 | Progress Note - Cardiology ---
Cardiology SOAP Progress Note Subjective: No cp or palp or syncope or shortness of breath Gen weakness and malaise persistent No n/v/d No swelling Objective: I&O/Vital Signs 01/09/22 01/09/22 01/09/22 01/09/22 03:36 07:00 08:00 08:02 Temp 36.3 36.5 Pulse 94 86 87 Resp 22 16 B/P (MAP) 138/65 (89) 155/85 (108) Pulse Ox 98 96 98 O2 Delivery Nasal Cannula Nasal Cannula O2 Flow Rate 2.00 3.00 01/09/22 01/09/22 01/09/22 01/09/22 11:55 13:00 13:55 14:25 Temp 36.6 36.6 36.6 Pulse 73 104 Resp 16 B/P (MAP) 113/67 (82) Pulse Ox 93 01/09/22 00:00 Intake Total 1460 ml Output Total 950 ml Balance 510 ml Constitutional: well-developed, well-nourished, other (appears oriented to plac and person, appears mildly confused, appears to have poor recent memory) Respiratory: No accessory muscle use; other (fair to good, bilat air entry) Cardiovascular: regular rate-rhythm, S1 and S2, systolic murmur (soft ZAINAB at card base) Gastrointestional: No tender; soft; No guarding, No rebound; audible bowel sounds Extremities: No clubbing, No cyanosis, No significant edema Neurologic/Psychiatric: oriented x 3, other (moves all limbs equally) Skin: No rash on exposed areas, No ulcerations on exposed areas Results/Procedures: Labs Laboratory Tests 01/09/22 06:00: White Blood Count 5.4, Red Blood Count 4.14, Hemoglobin 12.2, Hematocrit 37, Mean Corpuscular Volume 90, Mean Corpuscular Hemoglobin 30, Mean Corpuscular Hemoglobin Concent 33, Red Cell Distribution Width 14.6H, Platelet Count 123L, Mean Platelet Volume 9.7, Immature Granulocyte % (Auto) 1, Neutrophils (%) (Auto) 67, Lymphocytes (%) (Auto) 21, Monocytes (%) (Auto) 9, Eosinophils (%) (Auto) 2, Basophils (%) (Auto) 1, Neutrophils # (Auto) 3.6, Lymphocytes # (Auto) 1.1, Monocytes # (Auto) 0.5, Eosinophils # (Auto) 0.1, Basophils # (Auto) 0.0, Immature Granulocyte # (Auto) 0.0, Percent Immature Platelet Fraction 2.0, Sodium Level 140, Potassium Level 3.8, Chloride Level 110H, Carbon Dioxide Level 19L, Anion Gap 10, Blood Urea Nitrogen 14, Creatinine 0.67, Estimat Glomerular Filtration Rate 87, BUN/Creatinine Ratio 21, Glucose Level 88, Calcium Level 8.5, Corrected Calcium 9.4, Total Bilirubin 1.3H, Aspartate Amino Transf (AST/SGOT) 29, Alanine Aminotransferase (ALT/SGPT) 13, Alkaline Phosphatase 66, Total Protein 6.1L, Albumin 2.9L Laboratory Tests 01/08/22 06:04 01/09/22 06:00 A/P: Assessment: Non-syncopal fall on 01/07/22 leading to L clavicular fracture, displacement of L humerus, and L pelvic fracture - managed by Dr Lane H/o PAF - on chronic therapy with flecainide and apixaban; currently in NSR - echo on 01/08/22: LVEF 55-60%, grade 1 blank dysfunction Mild to mod dementia Plan: * Continue OAC and the antiarrhythmic regimen * Replenish electrolytes as needed * Monitor labs * I discussed her CV issues with her and her family and answered CV-related questions MARYANN BELLE MD FACP [facility] CCDS Jan 09, 2022 15:22
[2022-01-09 16:00] VITALS: BP 154/93
[2022-01-09 19:35] VITALS: BP 135/85
[2022-01-09] MEDS: OLANZapine 5 MG ODT (ZyPREXA ZYDIS) PO SCH (20:38)
[2022-01-10] VITALS (7 sets, daily range): BP systolic 108–181; BP diastolic 57–82
[2022-01-10 06:04] LABS: BASOPHILS # (AUTO) 0.1 10^3/uL (0.0-0.1); BASOPHILS % (AUTO) 1 % (0-10); EOSINOPHILS # (AUTO) 0.1 10^3/uL (0.0-0.3); EOSINOPHILS % (AUTO) 2 % (0-10); HEMATOCRIT 35 % (35-52); HEMOGLOBIN 11.8 g/dL (11.5-16.0); LYMPHOCYTES # (AUTO) 1.2 10^3/uL (1.0-4.0); LYMPHOCYTES % (AUTO) 21 % (12-44); MEAN CORPUSCULAR HEMOGLOBIN 30 pg (25-34); MEAN CORPUSCULAR HGB CONC 33 g/dL (32-36); MEAN CORPUSCULAR VOLUME 89 fL (80-99); MONOCYTES # (AUTO) 0.7 10^3/uL (0.0-1.0); MONOCYTES % (AUTO) 11 % (0-12); NEUTROPHILS # (AUTO) 3.7 10^3/uL (1.8-7.8); NEUTROPHILS % (AUTO) 64 % (42-75); PLATELET COUNT 136 10^3/uL (130-400); WHITE BLOOD COUNT 5.8 10^3/uL (4.3-11.0)
[2022-01-10] MEDS: NS IV 1000 ML 1,000 ML IV SCH ×2 (06:19→23:30)
[2022-01-10] MEDS: LEVOTHYROXINE 75 MCG (LEVOTHROID) TABLET PO SCH (06:19)
[2022-01-10 06:25] LABS: ALBUMIN 2.8 GM/DL (3.2-4.5); BILIRUBIN,TOTAL 1.1 MG/DL (0.1-1.0); CALCIUM 8.3 MG/DL (8.5-10.1); CREATININE SERUM 0.59 MG/DL (0.60-1.30); POTASSIUM 3.6 MMOL/L (3.6-5.0); TOTAL PROTEIN 5.8 GM/DL (6.4-8.2)
[2022-01-10] MEDS: APIXABAN 5 MG (ELIQUIS) TABLET PO SCH ×2 (09:11→19:58)
[2022-01-10] MEDS: risperiDONE 0.25 MG (RisperDAL) TAB PO SCH ×2 (09:12→19:59)
[2022-01-10] MEDS: FLECAINIDE 100 MG (TAMBOCOR) TAB PO SCH ×2 (09:12→20:01)
[2022-01-10] MEDS: DOCUSATE SODIUM 100 MG (COLACE) CAP PO SCH ×2 (09:12→20:00)
[2022-01-10] MEDS: SENNOSIDES 8.6 MG (SENOKOT) TAB PO SCH ×2 (09:12→20:01)
[2022-01-10] MEDS ORDERED: NS IV 500 ML 500 ML IV SCH (09:45)
--- NOTE | 2022-01-10 09:46 | Progress Note - Cardiology ---
Cardiology SOAP Progress Note Subjective: Lying in bed Objective: I&O/Vital Signs 01/10/22 01/10/22 01/10/22 01/10/22 00:16 01:00 03:37 07:28 Temp 36.6 36.3 Pulse 93 90 91 86 Resp 18 20 B/P (MAP) 146/82 (103) 149/65 (93) Pulse Ox 96 93 O2 Delivery Nasal Cannula Nasal Cannula O2 Flow Rate 2.00 2.00 01/10/22 08:00 Temp 36.3 Pulse 94 Resp 20 B/P (MAP) 147/68 (94) Pulse Ox 93 01/10/22 00:00 Intake Total 1125 ml Output Total 1300 ml Balance -175 ml Constitutional: well-developed, well-nourished, other (appears oriented to plac and person, appears mildly confused, appears to have poor recent memory) Respiratory: No accessory muscle use; other (fair to good, bilat air entry) Cardiovascular: regular rate-rhythm, S1 and S2, systolic murmur (soft ZAINAB at card base) Gastrointestional: No tender; soft; No guarding, No rebound; audible bowel sounds Extremities: No clubbing, No cyanosis, No significant edema Neurologic/Psychiatric: oriented x 3, other (moves all limbs equally) Skin: No rash on exposed areas, No ulcerations on exposed areas Results/Procedures: Labs Laboratory Tests 01/10/22 05:50: White Blood Count 5.8, Red Blood Count 3.98, Hemoglobin 11.8, Hematocrit 35, Mean Corpuscular Volume 89, Mean Corpuscular Hemoglobin 30, Mean Corpuscular Hemoglobin Concent 33, Red Cell Distribution Width 14.5, Platelet Count 136, Mean Platelet Volume 10.0, Immature Granulocyte % (Auto) 0, Neutrophils (%) (Auto) 64, Lymphocytes (%) (Auto) 21, Monocytes (%) (Auto) 11, Eosinophils (%) (Auto) 2, Basophils (%) (Auto) 1, Neutrophils # (Auto) 3.7, Lymphocytes # (Auto) 1.2, Monocytes # (Auto) 0.7, Eosinophils # (Auto) 0.1, Basophils # (Auto) 0.1, Immature Granulocyte # (Auto) 0.0, Sodium Level 138, Potassium Level 3.6, Chloride Level 110H, Carbon Dioxide Level 19L, Anion Gap 9, Blood Urea Nitrogen 12, Creatinine 0.59L, Estimat Glomerular Filtration Rate 90, BUN/Creatinine Ratio 20, Glucose Level 92, Calcium Level 8.3L, Corrected Calcium 9.3, Total Bilirubin 1.1H, Aspartate Amino Transf (AST/SGOT) 26, Alanine Aminotransferase (ALT/SGPT) 14, Alkaline Phosphatase 63, Total Protein 5.8L, Albumin 2.8L Laboratory Tests 01/09/22 06:00 01/10/22 05:50 A/P: Assessment: Non-syncopal fall on 01/07/22 leading to L clavicular fracture, displacement of L humerus, and L pelvic fracture - managed by Dr Lane H/o PAF - on chronic therapy with flecainide and apixaban; currently in NSR - echo on 01/08/22: LVEF 55-60%, grade 1 blank dysfunction Mild to mod dementia Plan: * Continue OAC and the antiarrhythmic regimen * Replenish electrolytes as needed * Monitor labs CLAUDIA CALDWELL Jan 10, 2022 09:46
--- NOTE | 2022-01-10 09:47 | ST Dysphagia Evaluation ---
Speech Evaluation-General Medical Diagnosis L Pubic rami fx, L Clavicle fx, L Humeral fx Onset Date: Jan 07, 2022 Precautions Precautions: Fall, Aspiration Precautions/Isolations: Aspiration, Fall Prevention, Standard Precautions Referral Referring Physician: Dr. Lane Reason for Referral: Evaluation/Treatment Medical History Current History The patient is an 81 year-old female with a past medical history of dementia, atrial fibrillation, and hypothyroidism, who presented to [facility] following a fall which resulted in a L pubic rami fx, L clavicle fx, and L humeral fx. Reviewed History: Yes Speech PLF/Current-Dysphagia Prior Level of Function The patient was unable to provide information regarding her prior level of function due to her current cognitive state. At this time, the patient is receiving a PU4 consistency diet with thin liquids. The patient has a tray of PU4 consistencies with thin liquids at bedside. Subjective The patient was lying in bed, awake, upon entrance to her room by the clinician. The patient does not return the clinician's verbal greeting, however, does make eye contact with the clinician throughout verbal communication. The patient does continue to state, "I need to get out of here," during the clinical bedside swallowing assessment. The patient does not follow verbal instructions with direct modeling (maximum clinician verbal and visual cueing) throughout the evaluation. The patient is seated upright in bed for safe swallow positioning. Cognitive Status Patient Orientation: Confused Oral Motor Skills Dentition: Natural Current Food Consistancy: Pureed, Thin Liquids Ability to Follow Directions: Poor Oral Expression Ability: Severe Impairment Voice Voice Phonatory-Based Quality: Normal Voice Pitch: Normal Voice Loudness: Normal Face Facial Symmetry: Symmetrical (At rest.) The patient does not participate in a cursory oral mechanism evaluation regardless of maximum verbal cueing and direct modeling. Dysphagia Evaluation Consistencies Presented: Thin Liquid (By teaspoon.), Pureed (Coated teaspoon. ) Oral Phase: Anterior Spillage, Unable to Suck Straw Initially, the patient refused attempts of P.O. trials presented by the clinician via teaspoon and straw. With gentle verbal encouragement, the patient consumed three teaspoons of orange juice and two teaspoons of water. The patient was able to appropriately accept the items from the teaspoon. The patient does display anterior spillage (mild) on one occasion with thin liquid. No additional oral impairments were noted throughout the limited assessment. Laryngeal elevation was present to palpation. A timely pharyngeal swallow appeared to be present and appreciated with each bolus trial. No additional pharyngeal impairments were not throughout the limited assessment. The patient does not display overt s/s of suspected aspiration with the limited P.O. trials provided (five teaspoons of thin liquid and two coated teaspoons of puree). Following each swallow, the patient presents with a clear vocal quality. Due to the patient's limited participation (five teaspoons of thin liquid and two coated teaspoons of puree), the clinician is unable to provide appropriate recommendations. Improved participation in the assessment will be required for the clinician to assess the patient's aspiration risk. To note, the patient does not display overt s/s of suspected aspiration with the limited P.O. trials provided. Following each swallow, the patient presents with a clear vocal quality. Dysphagia Evaluation Summary Please see above for the dysphagia evaluation summary. Due to the patient's limited participation, the clinician is unable to provide a summary regarding the patient's oropharyngeal swallowing skills. The speech pathologist attempted to contact the patient's RN at [phone]. At this time, an answer was not received. Speech Short Term Goals Short Term Goals Short Term Goals 1. The patient will participate in trials of the least restrictive consistency without s/s of suspected aspiration. Time Frame-STG: Three Days. Speech Fci Goals Fci Goals 1. The patient will tolerate the least restrictive diet without s/s of suspected aspiration. Time Frame: Seven Days. Speech-Plan Treatment Plan Speech Therapy Treatment Plan: Continue Plan of Care Treatment Duration: Jan 09, 2022 Frequency: 3 times per week Estimated Hrs Per Day: .25 hour per day Rehab Potential: Poor Safety Risks/Education Teaching Recipient: Patient Teaching Methods: Discussion Response to Teaching: Unable to Comprehend Education Topics Provided: Results, Recommendations, Plan of Care Time Speech Therapy Time In: 09:25 Speech Therapy Time Out: 09:38 DATE: Jan 10, 2022 Total Billed Time: 13 Billed Treatment Time 1FELECIACherelleBRITTANY ST Jan 10, 2022 09:47
[2022-01-10] MEDS ORDERED: LEVO75TA6 PO (10:03)
[2022-01-10] MEDS ORDERED: CALC-1077 PO (10:03)
--- NOTE | 2022-01-10 10:25 | Physical Therapy Progress Note ---
Therapy Progress Note Patient on hold per RN due to decline in status and uncontrolled pain. PT will continue to monitor patient status and resume when deemed medically able to actively participate with skilled therapy. RADHA ROMAN PT Jan 10, 2022 10:25
--- NOTE | 2022-01-10 11:50 | Progress Note ---
IRINA CLINE 01/10/22 1150: Subjective Date Seen by a Provider: Jan 10, 2022 Time Seen by a Provider: 10:05 Subjective/Events-last exam Vicki Pizano is an 81 yo female who was admitted for fractures to her left pubic ramus, left clavicle, and left humerus secondary to a fall on 01/07. The patient has a medical history significant for dementia. She is resting in bed at time of encounter. The patient is alert but only able to respond "yes" to questions and does not appear to be oriented to person, place, time, or purpose. Review of Systems Neurological: Confusion Objective Exam Last Set of Vital Signs Vital Signs Date Time Temp Pulse Resp B/P (MAP) Pulse Ox O2 Delivery O2 Flow Rate FiO2 01/10/22 08:00 36.3 94 20 147/68 (94) 93 01/10/22 08:00 Nasal Cannula 2.50 Capillary Refill : I&O Intake and Output 01/10/22 00:00 Intake Total 1125 ml Output Total 1900 ml Balance -775 ml Intake Oral 125 ml IV Total 1000 ml Output Urine Total 1900 ml General: Alert, Mild Distress, Other (only responds to questions with "yes." Left arm in a sling. Unable to follow instructions.) Lungs: Clear to Auscultation Heart: Regular Rate, Normal S1, Normal S2, No Murmurs Extremities: Other (ecchymosis to the left hand.) Results Lab Laboratory Tests 01/10/22 05:50: White Blood Count 5.8, Red Blood Count 3.98, Hemoglobin 11.8, Hematocrit 35, Mean Corpuscular Volume 89, Mean Corpuscular Hemoglobin 30, Mean Corpuscular Hemoglobin Concent 33, Red Cell Distribution Width 14.5, Platelet Count 136, Mean Platelet Volume 10.0, Immature Granulocyte % (Auto) 0, Neutrophils (%) (Auto) 64, Lymphocytes (%) (Auto) 21, Monocytes (%) (Auto) 11, Eosinophils (%) (Auto) 2, Basophils (%) (Auto) 1, Neutrophils # (Auto) 3.7, Lymphocytes # (Auto) 1.2, Monocytes # (Auto) 0.7, Eosinophils # (Auto) 0.1, Basophils # (Auto) 0.1, Immature Granulocyte # (Auto) 0.0, Sodium Level 138, Potassium Level 3.6, Chloride Level 110H, Carbon Dioxide Level 19L, Anion Gap 9, Blood Urea Nitrogen 12, Creatinine 0.59L, Estimat Glomerular Filtration Rate 90, BUN/Creatinine Ratio 20, Glucose Level 92, Calcium Level 8.3L, Corrected Calcium 9.3, Total Bilirubin 1.1H, Aspartate Amino Transf (AST/SGOT) 26, Alanine Aminotransferase (ALT/SGPT) 14, Alkaline Phosphatase 63, Total Protein 5.8L, Albumin 2.8L Assessment/Plan Assessment/Plan Assess & Plan/Chief Complaint 1. Fractures of the left clavicle, left distal humerus, left pubic ramus, secondary to mechanical fall: Administer analgesia. 2. Acute delirium: Continue monitoring here. 3. Severe dementia, atrial fibrillation, hypothyroidism: Continue home medications and monitoring. Consult Dr. Larsen of cardiology. 4. Oral anticoagulation: Continue taking Eliquis MIRACLE WELLS DO 01/11/22 0515: Subjective Subjective/Events-last exam Pt is awakening a little bit Confusion still remains DPOA, Azul Reaves is at the bedside and I did talk to her in depth Pain medication will be continued Supervisory-Addendum Brief Verification & Attestation Participated in pt care: history, MDM, physical Personally performed: exam, history, MDM, supervision of care Care discussed with: Medical Student Procedures: n/a Results interpretation: Verified all documentation Verification and Attestation of Medical Student E/M Service A medical student performed and documented this service in my presence. I re viewed and verified all information documented by the medical student and made modifications to such information, when appropriate. I personally performed the physical exam and medical decision making. Miracle Wells Jan 11, 2022,05:15 IRINA CLINE Jan 10, 2022 11:50 MIRACLE WELLS DO Jan 11, 2022 05:15
--- NOTE | 2022-01-10 12:49 | Progress Note - Cardiology ---
Cardiology SOAP Progress Note Subjective: She is confused and not able to provide any meaningful history Her niece is by her bedside Objective: I&O/Vital Signs 01/10/22 01/10/22 01/10/22 01/10/22 01:00 03:37 07:28 08:00 Temp 36.3 Pulse 90 91 86 Resp 20 B/P (MAP) 149/65 (93) Pulse Ox 93 99 O2 Delivery Nasal Cannula Nasal Cannula O2 Flow Rate 2.00 2.50 01/10/22 01/10/22 08:00 12:00 Temp 36.3 36.8 Pulse 94 102 Resp 20 20 B/P (MAP) 147/68 (94) 181/80 (113) Pulse Ox 93 99 O2 Delivery Room Air 01/10/22 00:00 Intake Total 1125 ml Output Total 1300 ml Balance -175 ml Constitutional: No AAO x 3; well-developed, well-nourished, other Respiratory: No accessory muscle use; other (fair to good, bilat air entry) Cardiovascular: regular rate-rhythm, S1 and S2, systolic murmur (soft ZAINAB at card base) Gastrointestional: No tender; soft; No guarding, No rebound; audible bowel sounds Extremities: No clubbing, No cyanosis, No significant edema Neurologic/Psychiatric: No oriented x 3; other (moves all limbs equally) Skin: No rash on exposed areas, No ulcerations on exposed areas Results/Procedures: Labs Laboratory Tests 01/10/22 05:50: White Blood Count 5.8, Red Blood Count 3.98, Hemoglobin 11.8, Hematocrit 35, Mean Corpuscular Volume 89, Mean Corpuscular Hemoglobin 30, Mean Corpuscular Hemoglobin Concent 33, Red Cell Distribution Width 14.5, Platelet Count 136, Mean Platelet Volume 10.0, Immature Granulocyte % (Auto) 0, Neutrophils (%) (Auto) 64, Lymphocytes (%) (Auto) 21, Monocytes (%) (Auto) 11, Eosinophils (%) (Auto) 2, Basophils (%) (Auto) 1, Neutrophils # (Auto) 3.7, Lymphocytes # (Auto) 1.2, Monocytes # (Auto) 0.7, Eosinophils # (Auto) 0.1, Basophils # (Auto) 0.1, Immature Granulocyte # (Auto) 0.0, Sodium Level 138, Potassium Level 3.6, Chloride Level 110H, Carbon Dioxide Level 19L, Anion Gap 9, Blood Urea Nitrogen 12, Creatinine 0.59L, Estimat Glomerular Filtration Rate 90, BUN/Creatinine Ratio 20, Glucose Level 92, Calcium Level 8.3L, Corrected Calcium 9.3, Total Bilirubin 1.1H, Aspartate Amino Transf (AST/SGOT) 26, Alanine Aminotransferase (ALT/SGPT) 14, Alkaline Phosphatase 63, Total Protein 5.8L, Albumin 2.8L A/P: Assessment: Non-syncopal fall on 01/07/22 leading to L clavicular fracture, displacement of L humerus, and L pelvic fracture - managed by Dr Lane H/o PAF - on chronic therapy with flecainide and apixaban; currently in [facility] - echo on 01/08/22: LVEF 55-60%, grade 1 blank dysfunction 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
--- NOTE | 2022-01-10 13:17 | Occ Therapy Progress Note ---
Therapy Progress Note Pt on hold this date per RN due to decline in status and uncontrolled pain. OT will continue to monitor pt and resume tx when pt is more medically stable and able to actively participate in skilled therapy. LOAN WEISS OT Jan 10, 2022 13:17
--- NOTE | 2022-01-10 14:13 | Physical Therapy Daily Note ---
PT Daily Note-Current Subjective Patient lying supine in bed upon PT arrival, family in the room. Family in agreement to treatment as they report patient was looking at the bedside commode and indicating she may need to use it. Patient unable to rate pain, however at rest appears to be in no distress. Pain Section J - Health Conditions 1. Rarely or not at all 2. Occasionally 3. Frequently 4. Almost constantly 8. Unable to answer Pain Effect on Sleep: 8 Pain Interference with Therapy: 8 Pain Interference w/Day-to-Day: 8 Transfers SCALE: Activities may be completed with or without assistive devices. 3-Yhsxqrjgeu-qcsxjad completes the activity by him/herself with no assistance from a helper. 5-Set-up or Clean-up Assistance-helper sets up or cleans up; patient completes activity. [place] assists only prior to or following the activity. 4-Supervision or Touching Assistance-helper provides verbal cues and/or touching/steadying and/or contact guard assistance as patient completes ac tivity. Assistance may be provided throughout the activity or intermittently. 3-Partial/Moderate Assistance-helper does LESS THAN HALF the effort. [place] lifts, holds or supports trunk or limbs, but provides less than half the effort. 2-Substantial/Maximal Assistance-helper does MORE THAN HALF the effort. [place] lifts or holds trunk or limbs and provides more than half the effort. 5-Kixncpeph-cpxcmp does ALL the effort. Patient does none of the effort to complete the activity. Or, the assistance of 2 or more helpers is required for the patient to complete the activity. If activity was not attempted, code reason: 7-Patient Refused. 9-Not Applicable-not attempted and the patient did not perform the activity before the current illness, exacerbation or injury. 10-Not Attempted due to Environmental Limitations-(lack of equipment, weather restraints, etc.). 88-Not Attempted due to Medical Conditions or Safety Concerns. Roll Left & Right (QC): 1 Sit to Lying (QC): 1 Lying to Sitting/Side of Bed(Q: 1 Assessment Current Status: Poor Progress Patient requires total assistance for all observed bed mobility and to sit at the edge of the bed. Patient tends to lean retropulsively and keeps her knees mostly extended. This position puts her in an almost standing position while sitting at the edge of the bed and makes it more possible for her slide off the edge of the bed. Requires assistance of 2 PTs to avoid falling. Patient returned to bed post treatment with all needs met, nursing notified, call light in hand and family in the room. At this time patient is unsafe to sit on the edge of the bed or on BSC due to her inability to comprehend or perform a safe sitting position. PT Short Term Goals Short Term Goals Time Frame: Jan 15, 2022 Roll Left & Right: 3 Sit to lyin Lying to sitting on side of be: 4 Sit to stand: 3 Chair/tta-ve-plzip transfer: 3 Walk 10 feet: 3 PT Plan Treatment/Plan Treatment Plan: Continue Plan of Care Treatment Plan: Bed Mobility, Concurrent Therapy, Education, Functional Activity [place], Functional Strength, Gait, Safety, Therapeutic Exercise, Transfers Treatment Duration: Jan 15, 2022 Frequency: 6 times per week Estimated Hrs Per Day: .25 hour per day Patient and/or Family Agrees t: Yes Safety Risks/Education Patient Education: Transfer Techniques Teaching Recipient: Patient, Family Teaching Methods: Demonstration, Discussion Response to Teaching: Reinforcement Needed Time Time In: 1340 Time Out: 1355 DATE: Jan 10, 2022 Total Billed Treatment Time: 15 Total Billed Treatment Visit, CARMELLA MACHUCA PT Jan 10, 2022 14:13
[2022-01-10] MEDS: OLANZapine 5 MG ODT (ZyPREXA ZYDIS) PO SCH (19:59)
[2022-01-11 04:05] VITALS: BP 131/66
[2022-01-11] MEDS: LEVOTHYROXINE 75 MCG (LEVOTHROID) TABLET PO SCH (05:27)
[2022-01-11 06:38] LABS: BASOPHILS # (AUTO) 0.1 10^3/uL (0.0-0.1); BASOPHILS % (AUTO) 1 % (0-10); EOSINOPHILS # (AUTO) 0.1 10^3/uL (0.0-0.3); EOSINOPHILS % (AUTO) 1 % (0-10); HEMATOCRIT 36 % (35-52); HEMOGLOBIN 11.8 g/dL (11.5-16.0); LYMPHOCYTES # (AUTO) 1.2 10^3/uL (1.0-4.0); LYMPHOCYTES % (AUTO) 16 % (12-44); MEAN CORPUSCULAR HEMOGLOBIN 29 pg (25-34); MEAN CORPUSCULAR HGB CONC 33 g/dL (32-36); MEAN CORPUSCULAR VOLUME 89 fL (80-99); MEAN PLATELET VOLUME 9.7 fL (9.0-12.2); MONOCYTES # (AUTO) 0.9 10^3/uL (0.0-1.0); MONOCYTES % (AUTO) 12 % (0-12); NEUTROPHILS # (AUTO) 5.3 10^3/uL (1.8-7.8); NEUTROPHILS % (AUTO) 69 % (42-75); PLATELET COUNT 137 10^3/uL (130-400); WHITE BLOOD COUNT 7.6 10^3/uL (4.3-11.0)
[2022-01-11 06:56] LABS: ALBUMIN 2.9 GM/DL (3.2-4.5); BILIRUBIN,TOTAL 1.4 MG/DL (0.1-1.0); CALCIUM 8.4 MG/DL (8.5-10.1); CREATININE SERUM 0.55 MG/DL (0.60-1.30); POTASSIUM 3.5 MMOL/L (3.6-5.0); TOTAL PROTEIN 6.1 GM/DL (6.4-8.2)
[2022-01-11 07:56] VITALS: BP 141/82
[2022-01-11] MEDS: DOCUSATE SODIUM 100 MG (COLACE) CAP PO SCH ×2 (08:36→20:32)
[2022-01-11] MEDS: risperiDONE 0.25 MG (RisperDAL) TAB PO SCH ×2 (08:36→20:31)
[2022-01-11] MEDS: SENNOSIDES 8.6 MG (SENOKOT) TAB PO SCH ×2 (08:36→20:31)
[2022-01-11] MEDS: FLECAINIDE 100 MG (TAMBOCOR) TAB PO SCH ×2 (08:36→20:32)
[2022-01-11] MEDS: APIXABAN 5 MG (ELIQUIS) TABLET PO SCH ×2 (08:37→20:31)
--- NOTE | 2022-01-11 08:54 | Speech Therapy Daily Note ---
Speech Daily Progress Note Subjective Date Seen by Provider: Jan 11, 2022 Time Seen by Provider: 08:15 The patient was lying in bed, awake, upon entrance to her room. At this time, the patient does not have a gown therefore the clinician covered the patient with her sheet and pulled her curtain for increased privacy. The patient was seated upright in bed for improved swallowing safety. The patient displayed increased ability to follow simple one-step commands on this date with direct modeling. The patient does demonstrate improved eye contact throughout the evaluation. Objective The patient does not attempt to self-feed. The patient consumed five teaspoons of water, four straw drinks of water, and three ounces of puree. The day prior the patient was unable to draw material through the straw, however, is able to on this date. The patient refuses additional P.O. trials of thin liquid. Solid consistencies were deferred for patient safety due to consistent confusion. Overt s/s of suspected aspiration were not present with any P.O. trial provided. Consistent verbal encouragement was required for continued participation. Recommendations: - PU4 with thin liquids, as tolerated. - Fully upright and alert for P.O. intake. - Consistent, 1:1 supervision and total feeding assistance for improved patient safety. - Small, single bites and sips only. - Crush medication and place in pudding for administration. - Monitor for s/s of suspected aspiration with P.O. intake. If demonstrated, the patient should be placed N.P.O. The clinician attempted contact with the patient's RN at [phone], however, no answer was received. The patient's diet consistency was updated on the patient's in-room white board. The patient remains at an aspiration risk due to her fluctuating alertness and mental status. Assessment Assessment Current Status: Fair Progress Treatment Plan Continue Plan of Care Speech Short Term Goals Short Term Goals Short Term Goals 1. The patient will participate in trials of the least restrictive consistency without s/s of suspected aspiration. Time Frame-STG: Three Days. Speech Senior Care Goals Senior Care Goals 1. The patient will tolerate the least restrictive diet without s/s of suspected aspiration. Time Frame: Seven Days. Speech-Plan Treatment Plan Speech Therapy Treatment Plan: Continue Plan of Care Treatment Duration: Jan 09, 2022 Frequency: 3 times per week Estimated Hrs Per Day: .25 hour per day Rehab Potential: Poor Safety Risks/Education Teaching Recipient: Patient Teaching Methods: Discussion Response to Teaching: Unable to Comprehend Education Topics Provided: Results, Recommendations, Plan of Care Time Speech Therapy Time In: 08:15 Speech Therapy Time Out: 08:32 DATE: Jan 11, 2022 Total Billed Time: 17 Billed Treatment Time 1, BLADIMIR BRITTANY SANFORD Jan 11, 2022 08:54
--- NOTE | 2022-01-11 09:44 | Progress Note ---
Subjective Date Seen by a Provider: Jan 11, 2022 Time Seen by a Provider: 09:45 Subjective/Events-last exam Pt is doing really well Pain is pretty well controlled The delirium comes and goes Will go to [facility] tomorrow Review of Systems General: Fatigue, Malaise Objective Exam Last Set of Vital Signs Vital Signs Date Time Temp Pulse Resp B/P (MAP) Pulse Ox O2 Delivery O2 Flow Rate FiO2 01/11/22 09:23 97 Nasal Cannula 2.00 01/11/22 07:56 36.6 97 18 141/82 (101) Capillary Refill : I&O Intake and Output 01/11/22 00:00 Intake Total 2640 ml Output Total 1850 ml Balance 790 ml Intake Oral 640 ml IV Total 2000 ml Output Urine Total 1850 ml General: Alert, No Acute Distress Lungs: Clear to Auscultation, Normal Air Movement Heart: Regular Rate, Normal S1, Normal S2, No Murmurs Psych/Mental Status: Other (confused) Results Lab Laboratory Tests 01/11/22 05:37: White Blood Count 7.6, Red Blood Count 4.01, Hemoglobin 11.8, Hematocrit 36, Mean Corpuscular Volume 89, Mean Corpuscular Hemoglobin 29, Mean Corpuscular H emoglobin Concent 33, Red Cell Distribution Width 14.4, Platelet Count 137, Mean Platelet Volume 9.7, Immature Granulocyte % (Auto) 0, Neutrophils (%) (Auto) 69, Lymphocytes (%) (Auto) 16, Monocytes (%) (Auto) 12, Eosinophils (%) (Auto) 1, Basophils (%) (Auto) 1, Neutrophils # (Auto) 5.3, Lymphocytes # (Auto) 1.2, Monocytes # (Auto) 0.9, Eosinophils # (Auto) 0.1, Basophils # (Auto) 0.1, Immature Granulocyte # (Auto) 0.0, Sodium Level 139, Potassium Level 3.5L, Chloride Level 110H, Carbon Dioxide Level 20L, Anion Gap 9, Blood Urea Nitrogen 12, Creatinine 0.55L, Estimat Glomerular Filtration Rate 91, BUN/Creatinine Ratio 22, Glucose Level 102, Calcium Level 8.4L, Corrected Calcium 9.3, Total Bilirubin 1.4H, Aspartate Amino Transf (AST/SGOT) 27, Alanine Aminotransferase (ALT/SGPT) 15, Alkaline Phosphatase 67, Total Protein 6.1L, Albumin 2.9L Assessment/Plan Assessment/Plan Assess & Plan/Chief Complaint Assessment: Fall mechanical type resulting in left clavicle, left distal humerus and left pubic ramus fractures Severe dementia Acute delirium AF chronic OAC Hypothyroidism Dysphagia due to confusion monitor closely Plan: Pain control Delirium treatment Home meds Dr Larsen consult OAC BM regimen NH admit [place] Monday ZURDO WELLS DO Jan 11, 2022 09:44
[2022-01-11 09:59] VITALS: BP 141/82
[2022-01-11 11:06] VITALS: BP 147/66
--- NOTE | 2022-01-11 11:17 | Physical Therapy Daily Note ---
PT Daily Note-Current Subjective Patient and family agree to PT. Pain Section J - Health Conditions 1. Rarely or not at all 2. Occasionally 3. Frequently 4. Almost constantly 8. Unable to answer Pain Effect on Sleep: 8 Pain Interference with Therapy: 8 Pain Interference w/Day-to-Day: 8 Mental Status Patient Orientation: Confused Attachments: [place] Catheter, IV Transfers SCALE: Activities may be completed with or without assistive devices. 0-Zpmuaoqkex-dtueytw completes the activity by him/herself with no assistance from a helper. 5-Set-up or Clean-up Assistance-helper sets up or cleans up; patient completes activity. [place] assists only prior to or following the activity. 4-Supervision or Touching Assistance-helper provides verbal cues and/or touching/steadying and/or contact guard assistance as patient completes activity. Assistance may be provided throughout the activity or intermittently. 3-Partial/Moderate Assistance-helper does LESS THAN HALF the effort. [place] lifts, holds or supports trunk or limbs, but provides less than half the effort. 2-Substantial/Maximal Assistance-helper does MORE THAN HALF the effort. [place] lifts or holds trunk or limbs and provides more than half the effort. 4-Diaqfcrnn-tjopel does ALL the effort. Patient does none of the effort to complete the activity. Or, the assistance of 2 or more helpers is required for the patient to complete the activity. If activity was not attempted, code reason: 7-Patient Refused. 9-Not Applicable-not attempted and the patient did not perform the activity before the current illness, exacerbation or injury. 10-Not Attempted due to Environmental Limitations-(lack of equipment, weather restraints, etc.). 88-Not Attempted due to Medical Conditions or Safety Concerns. Roll Left & Right (QC): 1 (x 2) Sit to Lying (QC): 1 (x 2) Lying to Sitting/Side of Bed(Q: 1 (x 2) Assessment Dependent assist with all mobility with dependent assist to maintain sitting EOB x 10 min while OT performed ADL's with patient. noted severe head and body lean to right with inability to assist with correcting. Patient returned to supine dependent assist of 2 with 4 rails up and bed alarm activated. PT Short Term Goals Short Term Goals Time Frame: Jan 15, 2022 Roll Left & Right: 3 Sit to lyin Lying to sitting on side of be: 4 Sit to stand: 3 Chair/fgx-dh-bxjhd transfer: 3 Walk 10 feet: 3 PT Plan Treatment/Plan Treatment Plan: Continue Plan of Care Treatment Plan: Bed Mobility, Concurrent Therapy, Education, Functional Activity [place], Functional Strength, Gait, Safety, Therapeutic Exercise, Transfers Treatment Duration: Jan 15, 2022 Frequency: 6 times per week Estimated Hrs Per Day: .25 hour per day Patient and/or Family Agrees t: Yes Time Time In: 1045 Time Out: 1059 DATE: Jan 11, 2022 Total Billed Treatment Time: 14 Total Billed Treatment 1 visit FA 14 min RADHA ROMAN PT Jan 11, 2022 11:17
--- NOTE | 2022-01-11 11:31 | Occupational Ther Daily Note ---
OT Current Status-Daily Note Subjective Pt. winces with movement, but does not state pain level. Nursing in room. Mental Status/Objective Patient Orientation: Unable to Assess ADL-Treatment Therapy Code Descriptions/Definitions Functional [place] Measure: 0=Not Assessed/NA 4=Minimal Assistance 1=Total Assistance 5=Supervision or Setup 2=Maximal Assistance 6=Modified [place] 3=Moderate Assistance 7=Complete IndependenceSCALE: Activities may be completed with or without assistive devices. 7-Vdxwtrvlns-ucluswr completes the activity by him/herself with no assistance from a helper. 5-Set-up or Clean-up Assistance-helper sets up or cleans up; patient completes activity. [place] assists only prior to or following the activity. 4-Supervision or Touching Assistance-helper provides verbal cues and/or touching/steadying and/or contact guard assistance as patient completes activity. Assistance may be provided throughout the activity or intermittently. 3-Partial/Moderate Assistance-helper does LESS THAN HALF the effort. [place] lifts, holds or supports trunk or limbs, but provides less than half the effort. 2-Substantial/Maximal Assistance-helper does MORE THAN HALF the effort. [place] lifts or holds trunk or limbs and provides more than half the effort. 7-Sthnyylqm-wanits does ALL the effort. Patient does none of the effort to complete the activity. Or, the assistance of 2 or more helpers is required for the patient to complete the activity. If activity was not attempted, code reason: 7-Patient Refused. 9-Not Applicable-not attempted and the patient did not perform the activity before the current illness, exacerbation or injury. 10-Not Attempted due to Environmental Limitations-(lack of equipment, weather restraints, etc.). 88-Not Attempted due to Medical Conditions or Safety Concerns. Other Treatment Pt. in bed. Family in room and would like to talk with nursing about placement for pt. OT let nursing know. OT/PT completed co-treatment due to pain, confusion, and assist level needed for treatment. PT focused on transfers and bed mobility while OT focused on pt following cues, sequencing, and completing simple grooming tasks. Pt. requires max x 2 for supine-sit, but does not become agitated in the way she has before. OT adjusted her arm sling for better comfort. It's noted that pt. kept head turned to right throughout treatment. She could turn to left a little with max prompting, but had difficulty. Required min/mod assist throughout for sitting balance. OT attempted to prompt pt. to wash her face and brush her hair. Attempted to hand her washcloth and brush at different times. Pt. takes them but then does not know what to do with them. OT washes pt's face, lips, and brushes her hair. OT applied a fresh hospital gown while sitting. Pt. sat approximately 10minutes. Transferred back sit-supine with max x 2. Dependent assist for bed mobility and positioning. All needs met. Bed alarm set. Family in room after therapy left. Education OT Patient Education: Correct positioning, Modified ADL techniques, Progress toward Goal/Update tx plan, Purpose of tx/functional activities, Reviewed precautions, Rehab process, Transfer techniques Teaching Recipient: Patient, Family Teaching Methods: Demonstration, Discussion Response to Teaching: Reinforcement Needed OT Mcc Goals Plywood Scarfer Tender Goals Time Frame: Jan 22, 2022 Eating (QC): 5 Oral Hygiene (QC): 5 Toileting Hygiene (QC): 3 Shower/Bathe Self (QC): 3 Upper Body Dressing (QC): 3 Lower Body Dressing (QC): 2 On/Off Footwear (QC): 2 Additional Goals: 1-Demonstrate ADL Tasks, 2-Verbalize Understanding, 3- ImproveStrength/[place] 1=Demonstrate adherence to instructed precautions during ADL tasks. 2=Patient will verbalize/demonstrate understanding of assistive devices/modifications for ADL. 3=Patient will improve strength/tolerance for activity to enable patient to perform ADL's. OT Education/Plan Problem List/Assessment Assessment: Decreased Activ Tolerance, Decreased Safety Aware, Decreased UE Strength, Dependent Transfers, Impaired Bed Mobility, Impaired Cognition, Impaired Funct Balance, Impaired I ADL's, Impaired Self-Care Skills, Restricted Funct UE ROM Discharge Recommendations Plan/Recommendations: Continue POC Therapy Discharge Recommendati: 24 Hour Supervision, Post Acute OT Treatment Plan/Plan of Care Treatment,Training & Education: Yes Patient would benefit from OT for education, treatment and training to promote independence in ADL's, mobility, safety and/or upper extremity function for ADL's. Plan of Care: ADL Retraining, Functional Mobility, UE Funct Exercise/Act Treatment Duration: Jan 22, 2022 Frequency: 3 times per week (3-5 times per week) Estimated Hrs Per Day: .25 hour per day Rehab Potential: Guarded Time Start Time: 10:45 Stop Time: 11:00 DATE: Jan 11, 2022 Total Time Billed (hr/min): 15 Billed Treatment Time 1, JOSÉ ANTONIO NUR OT Jan 11, 2022 11:31
[2022-01-11] MEDS ORDERED: KCL 20 MEQ TAB (K-DUR) PO NR (12:00)
--- NOTE | 2022-01-11 12:06 | Progress Note - Cardiology ---
Cardiology SOAP Progress Note Objective: I&O/Vital Signs 01/11/22 01/11/22 01/11/22 01/11/22 01:00 04:05 07:00 07:56 Temp 36.6 36.6 Pulse 122 97 116 97 Resp 18 18 B/P (MAP) 131/66 (87) 141/82 (101) Pulse Ox 91 97 O2 Delivery Room Air Nasal Cannula O2 Flow Rate 2.00 01/11/22 01/11/22 01/11/22 01/11/22 08:00 09:23 09:59 11:06 Temp 36.6 36.6 Pulse 103 98 Resp 18 B/P (MAP) 147/66 (93) Pulse Ox 97 97 97 O2 Delivery Nasal Cannula Nasal Cannula Nasal Cannula O2 Flow Rate 2.00 2.00 2.00 FiO2 28 01/11/22 00:00 Intake Total 1640 ml Output Total 1550 ml Balance 90 ml Constitutional: No AAO x 3; well-developed, well-nourished, other Respiratory: No accessory muscle use; other (fair to good, bilat air entry) Cardiovascular: regular rate-rhythm, S1 and S2, systolic murmur (soft ZAINAB at card base) Gastrointestional: No tender; soft; No guarding, No rebound; audible bowel sounds Extremities: No clubbing, No cyanosis, No significant edema Neurologic/Psychiatric: No oriented x 3; other (moves all limbs equally) Skin: No rash on exposed areas, No ulcerations on exposed areas Results/Procedures: Labs Laboratory Tests 01/11/22 05:37: White Blood Count 7.6, Red Blood Count 4.01, Hemoglobin 11.8, Hematocrit 36, Mean Corpuscular Volume 89, Mean Corpuscular Hemoglobin 29, Mean Corpuscular Hemoglobin Concent 33, Red Cell Distribution Width 14.4, Platelet Count 137, Mean Platelet Volume 9.7, Immature Granulocyte % (Auto) 0, Neutrophils (%) (Auto) 69, Lymphocytes (%) (Auto) 16, Monocytes (%) (Auto) 12, Eosinophils (%) (Auto) 1, Basophils (%) (Auto) 1, Neutrophils # (Auto) 5.3, Lymphocytes # (Auto) 1.2, Monocytes # (Auto) 0.9, Eosinophils # (Auto) 0.1, Basophils # (Auto) 0.1, Immature Granulocyte # (Auto) 0.0, Sodium Level 139, Potassium Level 3.5L, Chloride Level 110H, Carbon Dioxide Level 20L, Anion Gap 9, Blood Urea Nitrogen 12, Creatinine 0.55L, Estimat Glomerular Filtration Rate 91, BUN/Creatinine Ratio 22, Glucose Level 102, Calcium Level 8.4L, Corrected Calcium 9.3, Total Bilirubin 1.4H, Aspartate Amino Transf (AST/SGOT) 27, Alanine Aminotransferase (ALT/SGPT) 15, Alkaline Phosphatase 67, Total Protein 6.1L, Albumin 2.9L Laboratory Tests 01/10/22 05:50 01/11/22 05:37 A/P: Assessment: Non-syncopal fall on 01/07/22 leading to L clavicular fracture, displacement of L humerus, and L pelvic fracture - managed by Dr Lane H/o PAF - on chronic therapy with flecainide and apixaban; currently in [facility] - echo on 01/08/22: LVEF 55-60%, grade 1 blank dysfunction Mild to mod dementia Plan: * Continue OAC and the chronic antiarrhythmic regimen she has been on * Replenish electrolytes as needed * Monitor labs CLAUDIA CALDWELL Jan 11, 2022 12:06
[2022-01-11] MEDS: NS IV 1000 ML 1,000 ML IV SCH (15:36)
[2022-01-11 16:06] VITALS: BP 149/84
[2022-01-11] MEDS: RT-ALBUTEROL/IPRATROPIUM 3 ML (DUONEB) VIAL INH SCH (19:50)
[2022-01-11] MEDS: OLANZapine 5 MG ODT (ZyPREXA ZYDIS) PO SCH (20:31)
[2022-01-11 20:39] VITALS: BP 173/83
[2022-01-12 00:02] VITALS: BP 154/84
[2022-01-12 03:13] VITALS: BP 145/80
[2022-01-12] MEDS: LEVOTHYROXINE 75 MCG (LEVOTHROID) TABLET PO SCH (05:09)
[2022-01-12 06:55] LABS: BASOPHILS # (AUTO) 0.1 10^3/uL (0.0-0.1); BASOPHILS % (AUTO) 1 % (0-10); EOSINOPHILS # (AUTO) 0.1 10^3/uL (0.0-0.3); EOSINOPHILS % (AUTO) 1 % (0-10); HEMATOCRIT 37 % (35-52); HEMOGLOBIN 12.4 g/dL (11.5-16.0); LYMPHOCYTES % (AUTO) 13 % (12-44); MEAN CORPUSCULAR HEMOGLOBIN 30 pg (25-34); MEAN CORPUSCULAR HGB CONC 34 g/dL (32-36); MEAN CORPUSCULAR VOLUME 89 fL (80-99); MEAN PLATELET VOLUME 9.8 fL (9.0-12.2); MONOCYTES % (AUTO) 12 % (0-12); NEUTROPHILS # (AUTO) 5.8 10^3/uL (1.8-7.8); NEUTROPHILS % (AUTO) 73 % (42-75); PLATELET COUNT 147 10^3/uL (130-400); WHITE BLOOD COUNT 8.1 10^3/uL (4.3-11.0)
[2022-01-12 07:14] LABS: ALBUMIN 3.1 GM/DL (3.2-4.5); BILIRUBIN,TOTAL 1.5 MG/DL (0.1-1.0); CALCIUM 8.7 MG/DL (8.5-10.1); CREATININE SERUM 0.56 MG/DL (0.60-1.30); MAGNESIUM 1.8 MG/DL (1.6-2.4); POTASSIUM 3.5 MMOL/L (3.6-5.0); TOTAL PROTEIN 6.4 GM/DL (6.4-8.2)
[2022-01-12] MEDS: RT-ALBUTEROL/IPRATROPIUM 3 ML (DUONEB) VIAL INH SCH (07:28)
[2022-01-12 08:00] VITALS: BP 131/65
[2022-01-12] MEDS: morphine IMMEDIATE RELEASE 15 MG TABLET PO PRN (08:31)
[2022-01-12] MEDS: APIXABAN 5 MG (ELIQUIS) TABLET PO SCH (08:31)
[2022-01-12] MEDS: FLECAINIDE 100 MG (TAMBOCOR) TAB PO SCH (08:31)
[2022-01-12] MEDS: DOCUSATE SODIUM 100 MG (COLACE) CAP PO SCH (08:32)
[2022-01-12] MEDS: SENNOSIDES 8.6 MG (SENOKOT) TAB PO SCH (08:32)
[2022-01-12] MEDS: risperiDONE 0.25 MG (RisperDAL) TAB PO SCH (08:32)
[2022-01-12] MEDS: NS IV 1000 ML 1,000 ML IV SCH (08:35)
--- NOTE | 2022-01-12 08:55 | Physical Therapy Daily Note ---
PT Daily Note-Current Subjective Pt. in bed in recliner/throne position. Pt. very confused and agitated at times stating there is a terrible storm outside "cant you see that?" Also states there is a reed in her room "what does he want"? Pt does state she needs to have a BM and states yes when asked if she wants up on BSC. However during the attempt at the process to get her up pt. screams and moans and tells nursing and housekeeping as they cone in out of room that she is being murdered by these people and physically resists the process Pain Section J - Health Conditions 1. Rarely or not at all 2. Occasionally 3. Frequently 4. Almost constantly 8. Unable to answer Pain Effect on Sleep: 8 Pain Interference with Therapy: 8 Pain Interference w/Day-to-Day: 8 Appearance bruised, head turned sharply to right during entire Rx time, nonsensical verbalization Mental Status Patient Orientation: Confused Attachments: [place] Catheter, Other-See Comments (immoblizer for clavicle), IV Transfers SCALE: Activities may be completed with or without assistive devices. 1-Hxhgdfzzoy-azbilev completes the activity by him/herself with no assistance from a helper. 5-Set-up or Clean-up Assistance-helper sets up or cleans up; patient completes activity. [place] assists only prior to or following the activity. 4-Supervision or Touching Assistance-helper provides verbal cues and/or touching/steadying and/or contact guard assistance as patient completes activity. Assistance may be provided throughout the activity or intermittently. 3-Partial/Moderate Assistance-helper does LESS THAN HALF the effort. [place] lifts, holds or supports trunk or limbs, but provides less than half the effort. 2-Substantial/Maximal Assistance-helper does MORE THAN HALF the effort. [place] lifts or holds trunk or limbs and provides more than half the effort. 2-Pylnpjwev-vsngcf does ALL the effort. Patient does none of the effort to complete the activity. Or, the assistance of 2 or more helpers is required for the patient to complete the activity. If activity was not attempted, code reason: 7-Patient Refused. 9-Not Applicable-not attempted and the patient did not perform the activity before the current illness, exacerbation or injury. 10-Not Attempted due to Environmental Limitations-(lack of equipment, weather restraints, etc.). 88-Not Attempted due to Medical Conditions or Safety Concerns. Roll Left & Right (QC): 1 Sit to Lying (QC): 1 Lying to Sitting/Side of Bed(Q: 1 max assist of 2 to roll to left slightly and sit EOB on her left whre BSC was prepared at high level, pt. did sit EOB approx 6 mins but occas extended her back and attempted to lay down forcefully, and unsafely, Pt. then even more resistive when attempts made 2 Max to move pt. where her feet could touch the floor and possibly attempt SPT to BSC but pt. very resistive, crying out, confused, this attempt was abandoned for safety reasons , 2 max to TRF sit to sup, roll and place le, pt. noted to have begun BM, nursing to place bed gibson and assist pt. with clean up after etc. Exercises Supine Ex: Ankle pumps, Rolling, Heel Slides, Hip abd/add Supine Reps: 10 Treatments all ex passive, max asst 2 for all of Rx and attempt at mobility Assessment Current Status: Poor Progress Pts. confusion greatly limits her ability to participate in Rx PT Short Term Goals Short Term Goals Time Frame: Jan 15, 2022 Roll Left & Right: 3 Sit to lyin Lying to sitting on side of be: 4 Sit to stand: 3 Chair/fha-mf-[id number] transfer: 3 Walk 10 feet: 3 PT Plan Treatment/Plan Treatment Plan: Continue Plan of Care Treatment Plan: Bed Mobility, Concurrent Therapy, Education, Functional Activity [place], Functional Strength, Gait, Safety, Therapeutic Exercise, Transfers Treatment Duration: Jan 15, 2022 Frequency: 6 times per week Estimated Hrs Per Day: .25 hour per day Patient and/or Family Agrees t: Yes Safety Risks/Education Patient Education: Transfer Techniques, Correct Positioning Response to Teaching: Unable to Return Demonstration, Unable to Comprehend, Reinforcement Needed Time Time In: 831 Time Out: 851 DATE: Jan 12, 2022 Total Billed Treatment Time: 20 Total Billed Treatment 1,FA20m THUY PHILLIPS [facility]MIST [employer] Jan 12, 2022 08:55
[2022-01-12] MEDS ORDERED: ALPR0.5T7 PO (11:21)
[2022-01-12] MEDS ORDERED: OXC5T PO (11:21)
[2022-01-12] MEDS ORDERED: LEVO75TA6 PO (11:22)
[2022-01-12] MEDS ORDERED: FLEC50TA PO (11:22)
[2022-01-12] MEDS ORDERED: APIX5TAB PO (11:22)
--- NOTE | 2022-01-12 11:23 | Discharge Summary ---
Diagnosis/Chief Complaint Date of Admission Jan 07, 2022 at 14:00 Date of Discharge Discharge Date: Jan 12, 2022 Discharge Diagnosis Assessment: Fall mechanical type resulting in left clavicle, left distal humerus and left pubic ramus fractures Severe dementia Acute delirium AF chronic OAC Hypothyroidism Dysphagia due to confusion monitor closely Plan: Pain control Delirium treatment Home meds Dr Larsen consult OAC BM regimen NH admit [place] Monday Discharge Summary Discharge Physical Examination Allergies: Coded Allergies: adhesive tape (Unverified Allergy, Unknown, 01/07/22) iodine (Unverified Allergy, Unknown, 01/07/22) shellfish derived (Unverified Allergy, Unknown, 01/07/22) sulindac (Unverified Allergy, Unknown, 01/07/22) Vitals & I&Os Vital Signs Date Time Temp Pulse Resp B/P (MAP) Pulse Ox O2 Delivery O2 Flow Rate FiO2 01/12/22 13:47 37.1 94 16 124/75 94 Room Air 0.00 01/11/22 09:59 28 General Appearance: Other (sedated) Respiratory: Clear to Auscultation Hospital Course Was the Problem List Reviewed?: Yes Pt had a lengthy hospital course after she was managed for left pubic ramus fracture and left humerus fracture with significant delirium on dementia. She was refusing to eat and drink most of the time and wasn't taking any of her home medication. Although she did become alert at one time. Poor prognosis remains considering the severity of her dementia and severe pain delirium and overall poor prognosis. I did send all of her medications into too[facility]. If she fails skilled she will go hospice. She will be on my service at [facility]. Labs (last 24 hrs) Laboratory Tests 01/08/22 06:04: White Blood Count 6.4, Red Blood Count 3.99, Hemoglobin 11.8, Hematocrit 36, Mean Corpuscular Volume 91, Mean Corpuscular Hemoglobin 30, Mean Corpuscular Hemoglobin Concent 33, Red Cell Distribution Width 14.6H, Platelet Count 118L, Mean Platelet Volume 10.2, Immature Granulocyte % (Auto) 0, Neutrophils (%) (A uto) 70, Lymphocytes (%) (Auto) 18, Monocytes (%) (Auto) 11, Eosinophils (%) (Auto) 1, Basophils (%) (Auto) 1, Neutrophils # (Auto) 4.5, Lymphocytes # (Auto) 1.2, Monocytes # (Auto) 0.7, Eosinophils # (Auto) 0.0, Basophils # (Auto) 0.1, Immature Granulocyte # (Auto) 0.0, Percent Immature Platelet Fraction 2.5, Sodium Level 138, Potassium Level 4.0, Chloride Level 110H, Carbon Dioxide Level 17L, Anion Gap 11, Blood Urea Nitrogen 19H, Creatinine 0.68, Estimat Glomerular Filtration Rate 87, BUN/Creatinine Ratio 28, Glucose Level 101, Calcium Level 8.7, Corrected Calcium 9.6, Total Bilirubin 1.1H, Aspartate Amino Transf (AST/SGOT) 25, Alanine Aminotransferase (ALT/SGPT) 14, Alkaline Phosphatase 65, Total Protein 6.2L, Albumin 2.9L 01/09/22 06:00: White Blood Count 5.4, Red Blood Count 4.14, Hemoglobin 12.2, Hematocrit 37, Mean Corpuscular Volume 90, Mean Corpuscular Hemoglobin 30, Mean Corpuscular Hemoglobin Concent 33, Red Cell Distribution Width 14.6H, Platelet Count 123L, Mean Platelet Volume 9.7, Immature Granulocyte % (Auto) 1, Neutrophils (%) (Auto) 67, Lymphocytes (%) (Auto) 21, Monocytes (%) (Auto) 9, Eosinophils (%) (Auto) 2, Basophils (%) (Auto) 1, Neutrophils # (Auto) 3.6, Lymphocytes # (Auto) 1.1, Monocytes # (Auto) 0.5, Eosinophils # (Auto) 0.1, Basophils # (Auto) 0.0, Immature Granulocyte # (Auto) 0.0, Percent Immature Platelet Fraction 2.0, Sodium Level 140, Potassium Level 3.8, Chloride Level 110H, Carbon Dioxide Level 19L, Anion Gap 10, Blood Urea Nitrogen 14, Creatinine 0.67, Estimat Glomerular Filtration Rate 87, BUN/Creatinine Ratio 21, Glucose Level 88, Calcium Level 8.5, Corrected Calcium 9.4, Total Bilirubin 1.3H, Aspartate Amino Transf (AST /SGOT) 29, Alanine Aminotransferase (ALT/SGPT) 13, Alkaline Phosphatase 66, Total Protein 6.1L, Albumin 2.9L 01/10/22 05:50: White Blood Count 5.8, Red Blood Count 3.98, Hemoglobin 11.8, Hematocrit 35, Mean Corpuscular Volume 89, Mean Corpuscular Hemoglobin 30, Mean Corpuscular Hemoglobin Concent 33, Red Cell Distribution Width 14.5, Platelet Count 136, Mean Platelet Volume 10.0, Immature Granulocyte % (Auto) 0, Neutrophils (%) (Auto) 64, Lymphocytes (%) (Auto) 21, Monocytes (%) (Auto) 11, Eosinophils (%) (Auto) 2, Basophils (%) (Auto) 1, Neutrophils # (Auto) 3.7, Lymphocytes # (Auto) 1.2, Monocytes # (Auto) 0.7, Eosinophils # (Auto) 0.1, Basophils # (Auto) 0.1, Immature Granulocyte # (Auto) 0.0, Sodium Level 138, Potassium Level 3.6, Chloride Level 110H, Carbon Dioxide Level 19L, Anion Gap 9, Blood Urea Nitrogen 12, Creatinine 0.59L, Estimat Glomerular Filtration Rate 90, BUN/Creatinine Ratio 20, Glucose Level 92, Calcium Level 8.3L, Corrected Calcium 9.3, Total Bilirubin 1.1H, Aspartate Amino Transf (AST/SGOT) 26, Alanine Aminotransferase (ALT/SGPT) 14, Alkaline Phosphatase 63, Total Protein 5.8L, Albumin 2.8L 01/11/22 05:37: White Blood Count 7.6, Red Blood Count 4.01, Hemoglobin 11.8, Hematocrit 36, Mean Corpuscular Volume 89, Mean Corpuscular Hemoglobin 29, Mean Corpuscular Hemoglobin Concent 33, Red Cell Distribution Width 14.4, Platelet Count 137, Mean Platelet Volume 9.7, Immature Granulocyte % (Auto) 0, Neutrophils (%) (Auto) 69, Lymphocytes (%) (Auto) 16, Monocytes (%) (Auto) 12, Eosinophils (%) (Auto) 1, Basophils (%) (Auto) 1, Neutrophils # (Auto) 5.3, Lymphocytes # (Auto) 1.2, Monocytes # (Auto) 0.9, Eosinophils # (Auto) 0.1, Basophils # (Auto) 0.1, Immature Granulocyte # (Auto) 0.0, Sodium Level 139, Potassium Level 3.5L, Chloride Level 110H, Carbon Dioxide Level 20L, Anion Gap 9, Blood Urea Nitrogen 12, Creatinine 0.55L, Estimat Glomerular Filtration Rate 91, BUN/Creatinine Ratio 22, Glucose Level 102, Calcium Level 8.4L, Corrected Calcium 9.3, Total Bilirubin 1.4H, Aspartate Amino Transf (AST/SGOT) 27, Alanine Aminotransferase (ALT/SGPT) 15, Alkaline Phosphatase 67, Total Protein 6.1L, Albumin 2.9L 01/12/22 06:41: White Blood Count 8.1, Red Blood Count 4.16, Hemoglobin 12.4, Hematocrit 37, Mean Corpuscular Volume 89, Mean Corpuscular Hemoglobin 30, Mean Corpuscular Hemoglobin Concent 34, Red Cell Distribution Width 14.5, Platelet Count 147, Mean Platelet Volume 9.8, Immature Granulocyte % (Auto) 1, Neutrophils (%) (Auto) 73, Lymphocytes (%) (Auto) 13, Monocytes (%) (Auto) 12, Eosinophils (%) (Auto) 1, Basophils (%) (Auto) 1, Neutrophils # (Auto) 5.8, Lymphocytes # (Auto) 1.0, Monocytes # (Auto) 1.0, Eosinophils # (Auto) 0.1, Basophils # (Auto) 0.1, Immature Granulocyte # (Auto) 0.1, Sodium Level 141, Potassium Level 3.5L, Chloride Level 110H, Carbon Dioxide Level 21, Anion Gap 10, Blood Urea Nitrogen 11, Creatinine 0.56L, Estimat Glomerular Filtration Rate 91, BUN/Creatinine Ratio 20, Glucose Level 110H, Calcium Level 8.7, Corrected Calcium 9.4, Magnesium Level 1.8, Total Bilirubin 1.5H, Aspartate Amino Transf (AST/SGOT) 26, Alanine Aminotransferase (ALT/SGPT) 16, Alkaline Phosphatase 70, Total Protein 6.4, Albumin 3.1L Pending Labs Laboratory Tests 01/08/22 06:04: White Blood Count 6.4, Red Blood Count 3.99, Hemoglobin 11.8, Hematocrit 36, Mean Corpuscular Volume 91, Mean Corpuscular Hemoglobin 30, Mean Corpuscular Hemoglobin Concent 33, Red Cell Distribution Width 14.6, Platelet Count 118, Mean Platelet Volume 10.2, Immature Granulocyte % (Auto) 0, Neutrophils (%) (Auto) 70, Lymphocytes (%) (Auto) 18, Monocytes (%) (Auto) 11, Eosinophils (%) (Auto) 1, Basophils (%) (Auto) 1, Neutrophils # (Auto) 4.5, Lymphocytes # (Auto) 1.2, Monocytes # (Auto) 0.7, Eosinophils # (Auto) 0.0, Basophils # (Auto) 0.1, Immature Granulocyte # (Auto) 0.0, Percent Immature Platelet Fraction 2.5, Sodium Level 138, Potassium Level 4.0, Chloride Level 110, Carbon Dioxide Level 17, Anion Gap 11, Blood Urea Nitrogen 19, Creatinine 0.68, Estimat Glomerular Filtration Rate 87, BUN/Creatinine Ratio 28, Glucose Level 101, Calcium Level 8.7, Corrected Calcium 9.6, Total Bilirubin 1.1, Aspartate Amino Transf (AST/SGOT) 25, Alanine Aminotransferase (ALT/SGPT) 14, Alkaline Phosphatase 65, Total Protein 6.2, Albumin 2.9 01/09/22 06:00: White Blood Count 5.4, Red Blood Count 4.14, Hemoglobin 12.2, Hematocrit 37, Mean Corpuscular Volume 90, Mean Corpuscular Hemoglobin 30, Mean Corpuscular Hemoglobin Concent 33, Red Cell Distribution Width 14.6, Platelet Count 123, Mean Platelet Volume 9.7, Immature Granulocyte % (Auto) 1, Neutrophils (%) (Auto) 67, Lymphocytes (%) (Auto) 21, Monocytes (%) (Auto) 9, Eosinophils (%) (Auto) 2, Basophils (%) (Auto) 1, Neutrophils # (Auto) 3.6, Lymphocytes # (Auto) 1.1, Monocytes # (Auto) 0.5, Eosinophils # (Auto) 0.1, Basophils # (Auto) 0.0, Immature Granulocyte # (Auto) 0.0, Percent Immature Platelet Fraction 2.0, Sodium Level 140, Potassium Level 3.8, Chloride Level 110, Carbon Dioxide Level 19, Anion Gap 10, Blood Urea Nitrogen 14, Creatinine 0.67, Estimat Glomerular Filtration Rate 87, BUN/Creatinine Ratio 21, Glucose Level 88, Calcium Level 8.5, Corrected Calcium 9.4, Total Bilirubin 1.3, Aspartate Amino Transf (AST/SGOT) 29, Alanine Aminotransferase (ALT/SGPT) 13, Alkaline Phosphatase 66, Total Protein 6.1, Albumin 2.9 01/10/22 05:50: White Blood Count 5.8, Red Blood Count 3.98, Hemoglobin 11.8, Hematocrit 35, Mean Corpuscular Volume 89, Mean Corpuscular Hemoglobin 30, Mean Corpuscular Hemoglobin Concent 33, Red Cell Distribution Width 14.5, Platelet Count 136, Mean Platelet Volume 10.0, Immature Granulocyte % (Auto) 0, Neutrophils (%) (Auto) 64, Lymphocytes (%) (Auto) 21, Monocytes (%) (Auto) 11, Eosinophils (%) (Auto) 2, Basophils (%) (Auto) 1, Neutrophils # (Auto) 3.7, Lymphocytes # (Auto) 1.2, Monocytes # (Auto) 0.7, Eosinophils # (Auto) 0.1, Basophils # (Auto) 0.1, Immature Granulocyte # (Auto) 0.0, Sodium Level 138, Potassium Level 3.6, Chloride Level 110, Carbon Dioxide Level 19, Anion Gap 9, Blood Urea Nitrogen 12, Creatinine 0.59, Estimat Glomerular Filtration Rate 90, BUN/Creatinine Ratio 20, Glucose Level 92, Calcium Level 8.3, Corrected Calcium 9.3, Total Bilirubin 1.1, Aspartate Amino Transf (AST/SGOT) 26, Alanine Aminotransferase (ALT/SGPT) 14, Alkaline Phosphatase 63, Total Protein 5.8, Albumin 2.8 01/11/22 05:37: White Blood Count 7.6, Red Blood Count 4.01, Hemoglobin 11.8, Hematocrit 36, Mean Corpuscular Volume 89, Mean Corpuscular Hemoglobin 29, Mean Corpuscular Hemoglobin Concent 33, Red Cell Distribution Width 14.4, Platelet Count 137, Mean Platelet Volume 9.7, Immature Granulocyte % (Auto) 0, Neutrophils (%) (Auto) 69, Lymphocytes (%) (Auto) 16, Monocytes (%) (Auto) 12, Eosinophils (%) (Auto) 1, Basophils (%) (Auto) 1, Neutrophils # (Auto) 5.3, Lymphocytes # (Auto) 1.2, Monocytes # (Auto) 0.9, Eosinophils # (Auto) 0.1, Basophils # (Auto) 0.1, Immature Granulocyte # (Auto) 0.0, Sodium Level 139, Potassium Level 3.5, Chloride Level 110, Carbon Dioxide Level 20, Anion Gap 9, Blood Urea Nitrogen 12, Creatinine 0.55, Estimat Glomerular Filtration Rate 91, BUN/Creatinine Ratio 22, Glucose Level 102, Calcium Level 8.4, Corrected Calcium 9.3, Total Bilirubin 1.4, Aspartate Amino Transf (AST/SGOT) 27, Alanine Aminotransferase (ALT/SGPT) 15, Alkaline Phosphatase 67, Total Protein 6.1, Albumin 2.9 01/12/22 06:41: White Blood Count 8.1, Red Blood Count 4.16, Hemoglobin 12.4, Hematocrit 37, Mean Corpuscular Volume 89, Mean Corpuscular Hemoglobin 30, Mean Corpuscular Hemoglobin Concent 34, Red Cell Distribution Width 14.5, Platelet Count 147, Mean Platelet Volume 9.8, Immature Granulocyte % (Auto) 1, Neutrophils (%) (Auto) 73, Lymphocytes (%) (Auto) 13, Monocytes (%) (Auto) 12, Eosinophils (%) (Auto) 1, Basophils (%) (Auto) 1, Neutrophils # (Auto) 5.8, Lymphocytes # (Auto) 1.0, Monocytes # (Auto) 1.0, Eosinophils # (Auto) 0.1, Basophils # (Auto) 0.1, Immature Granulocyte # (Auto) 0.1, Sodium Level 141, Potassium Level 3.5, Chloride Level 110, Carbon Dioxide Level 21, Anion Gap 10, Blood Urea Nitrogen 11, Creatinine 0.56, Estimat Glomerular Filtration Rate 91, BUN/Creatinine Ratio 20, Glucose Level 110, Calcium Level 8.7, Corrected Calcium 9.4, Magnesium Level 1.8, Total Bilirubin 1.5, Aspartate Amino Transf (AST/SGOT) 26, Alanine Aminotransferase (ALT/SGPT) 16, Alkaline Phosphatase 70, Total Protein 6.4, Albumin 3.1 Discharge Home Medications: Active Scripts Active Levothyroxine Sodium 75 Mcg Tablet 75 Mcg PO DAILY Flecainide Acetate 50 Mg Tablet 50 Mg PO BID Eliquis (Apixaban) 5 Mg Tablet 5 Mg PO BID Alprazolam 0.5 Mg Tablet 0.5 Mg PO Q3H PRN Oxyir Tablet (Oxycodone HCl) 5 Mg Tab 5 Mg PO Q4HR PRN Instructions to patient/family Please see electronic discharge instructions given to patient. ZURDO WELLS DO Jan 12, 2022 11:23
--- NOTE | 2022-01-12 11:32 | Occ Therapy Progress Note ---
Therapy Progress Note Nurse requests OT to hold tx at this time. Pt is currently resting and planning on discharging to [facility] later today. OT will attempt tx again at next available time. LOAN WEISS OT Jan 12, 2022 11:32
--- NOTE | 2022-01-12 11:46 | Discharge Inst-Skilled Nursing ---
Discharge Inst-Skilled NF Reconcile Patient Problems Problems Reviewed?: Yes Chief Complaint CC: Fall with left clavicle and left pelvic ramus fracture HPI: This is an 81yoWF patient who just moved from [place] to [facility] in [place] and suffered a fall which resulted in left sided bone fractures. Her relative works at [employer] in OB floor so she requested the patient to move here to be closer to her. She is very confused and has dementia. Dr Larsen consulted for AF on OAC and Flecanide. Anti-psychotics are ordered due to agitation already noted. Patient Instructions Patient Problems: Falls Pubic ramus fracture Goal: [place] Consult/Follow Up/Orders Skilled NF Admit to: [facility] Certification (SNF) I certify that SNF services are required to be given on an inpatient basis because of the above named patient's need for long-term care on a continuing basis for the conditions(s) for which he/she was receiving inpatient hospital services prior to his/her transfer to the SNF. Shelter Facility Order: Nursing Services, Patient Care Manager-Evaluate & Treat, Physical Therapy-Evaluate & Treat, Speech Language-Evaluate & Treat Oxygen Delivery Method: Room Air Discharge Diet: Soft Diet Daily Activity as Tolerated: Yes Resuscitation Status: Do Not Resuscitate New & Resume Previous Orders New Medications: Alprazolam (Alprazolam) 0.5 Mg Tablet 0.5 MG PO Q3H PRN for ANXIETY, #20 TAB Oxycodone Hcl (Oxyir Tablet) 5 Mg Tab 5 MG PO Q4HR PRN for PAIN-SEE DOSE INSTRUCTIONS, #20 TAB Continued Medications: Apixaban (Eliquis) 5 Mg Tablet 5 MG PO BID, #60 TAB (This prescription has been renewed) Flecainide Acetate (Flecainide Acetate) 50 Mg Tablet 50 MG PO BID, #60 TAB (This prescription has been renewed) Levothyroxine Sodium (Levothyroxine Sodium) 75 Mcg Tablet 75 MCG PO DAILY, #30 TAB (This prescription has been renewed) Discontinued Medications: Calcium/D3/Zinc/Copper/Robin (Citracal-D3 Maximum Plus Caplt) 325MG-12.5 Tablet 2 EACH PO BID, TAB Naproxen Sodium (Aleve) 220 Mg Capsule 220 MG PO DAILY, CAP Miracle Lane Jan 12, 2022 11:[address] DO Jan 12, 2022 11:46
[2022-01-12 12:00] VITALS: BP 124/75
[2022-01-12 13:47] VITALS: BP 124/75
== END 2022-01-12 13:39 | DRG 536 ==
LOC: 4TH 14:00
PROVIDERS: ADMIT Internal Medicine; ATTEND Internal Medicine
DX: S32.592A Other specified fracture of left pubis, initial encounter for closed fracture (principal); S42.402A Unspecified fracture of lower end of left humerus, initial encounter for closed fracture; F03.C2 Unspecified dementia, severe, with psychotic disturbance; F05 Delirium due to known physiological condition; S42.002A Fracture of unspecified part of left clavicle, initial encounter for closed fracture; I48.0 Paroxysmal atrial fibrillation; E03.9 Hypothyroidism, unspecified; R13.10 Dysphagia, unspecified; Z66 Do not resuscitate; Z79.01 Long term (current) use of anticoagulants; W19.XXXA Unspecified fall, initial encounter
CPT/HCPCS: 36415; 80053; 83735; 85025; 93005; 93306; 94640; 94760

== ENCOUNTER → 2022-11-07 | Outpatient (CLI) | payer MEDICARE ==
[~2022-11-07] MED LIST: ALPR0.5T7 PO; APIX5TAB PO; ATOR10TA PO; CALC-1077 PO; CALC-146 PO; CALC-696 PO; CATHETER FLUSH 10 ML SYR IVP PRN; FLEC50TA PO; FURO-125 PO; LEVO75CA5 PO; LEVO75TA6 PO; NAPR220C11 PO; OXC5T PO; POLY17PO6 PO; POTA-177 PO; REGADENOSON 0.4 MG/5 ML SYR IV ONE
[2022-11-07 09:05] VITALS: BP 154/95
--- NOTE | 2022-11-10 07:30 | Cardiology Stress Test Report ---
Stress Test Report Date of Procedure/Referring: Date of Procedure: Nov 07, [address] DO Admitting Physician Admitting Physician: Attending Physician: Christ Esteban MD Baseline Heart Rate: 80 Baseline Blood Pressure: Blood Pressure Systolic: 154 Blood Pressure Diastolic: 95 Baseline Vitals Vital Signs Date Time Temp Pulse Resp B/P (MAP) Pulse Ox O2 Delivery O2 Flow Rate FiO2 11/07/22 09:05 82 154/95 (114) Summary After explaining the procedure to the patient, she signed a consent and then brought to the stress nuclear laboratory. Patient received 0.4 mg Lexiscan for stress test, ECG, heart rate and blood pressure were monitored continuously. Resting and stress dose of radio tracer were injected, imaging was acquired and reviewed in short axis, horizontal long axis and vertical long axis views. TID: 1.24 SSS: 5 SDS: 3 EF: 78 Patient tolerated Lexiscan well Breast attenuation with mild reversible ischemia involving the mid to apical anterolateral wall and mid anterior wall Transient ischemic dilatation 1.24 Normal left ventricular size, ejection fraction 78% Copy Copies To 1: MIRACLE LANE BASHAR J MD Nov 10, 2022 07:30
== END ==
LOC: CARD 07:22
PROVIDERS: ATTEND Internal Medicine Cardiovascular Disease
DX: I25.10 Atherosclerotic heart disease of native coronary artery without angina pectoris (principal)
CPT/HCPCS: 78452; 93017; A9502